=== PATIENT | female | born 1975 | race Hispanic/Latino ===

== ENCOUNTER 2017-10-20 14:09 | Inpatient (IN) | payer MEDICARE ==
[~2017-10-20] VITALS: Ht 167.6 cm; Wt 130.1 kg
[~2017-10-20 14:09] MED LIST: ACET500C54 PO; AMLO5TAB2 PO; CEPH500B PO; CILO100T PO; INSU100C6 SQ; INSU100I24 SQ; ISOS30TA6 PO; METO-409 PO; METO10TA3 PO; METR500T PO; ONDA8TAB11 PO; PREG150C PO; SODI15OR11 PO; TYL3B PO; ZINC TP; ZOLP10TA6 PO; [UNRECOGNIZED DRUG - OTHER] TP
[2017-10-20 15:07] LABS: BASOPHILS % (AUTO) 0.5 % (0.0-5.0); EOSINOPHILS % (AUTO) 11.8 % (0.0-8.0); HEMATOCRIT 24.7 % (36-48); LYMPHOCYTES % (AUTO) 29.1 % (21.0-51.0); MEAN CORPUSCULAR HEMOGLOBIN 31.3 pg (27.0-33.0); MEAN CORPUSCULAR HGB CONC 32.7 g/dL (32.0-36.0); MEAN CORPUSCULAR VOLUME 95.8 fL (79-99); MONOCYTES % (AUTO) 8.3 % (3.0-13.0); NEUTROPHILS % (AUTO) 50.3 % (40.0-77.0); PLATELET COUNT (AUTO) 149 K/uL (130-400); RED BLOOD CELL COUNT(AUTO) 2.58 MIL/uL (4.00-5.50); RED CELL DISTRIBUTION WIDTH 14.2 % (11.0-15.5); WHITE BLOOD COUNT (AUTO) 9.2 K/uL (4.8-10.8)
[2017-10-20 15:42] LABS: ALBUMIN 1.3 g/dL (3.5-5.0); BILIRUBIN,TOTAL 0.1 mg/dL (0.2-1.0); CREATINE KINASE MB 3.3 ng/mL (0.5-3.6); CREATININE 2.4 mg/dL (0.5-1.5); TOTAL PROTEIN, SERUM 6.5 g/dL (6.0-8.3)
[2017-10-20 15:48] LABS: POTASSIUM 6.2 mmol/L (3.5-5.1)
[2017-10-20] MEDS ORDERED: SODIUM BICARB 50MEQ 50ML VIAL ONE (16:32)
[2017-10-20] MEDS ORDERED: SODIUM POLYSTYRENE SULFONATE 15 GM/60 ML ML ONE ×2 (16:32→20:28)
[2017-10-20] MEDS ORDERED: CALCIUM GLUCONATE 1 GM/10 ML VIAL IV ONE (16:32)
[2017-10-20] MEDS ORDERED: DEXTROSE 50%-WATER 50 ML DISP.SYRIN IV ONE (16:34)
[2017-10-20] MEDS ORDERED: INSULIN HUMULIN R 100 UNIT/ML 3ML ONE (16:35)
[2017-10-20] MEDS ORDERED: SODIUM CHLORIDE 0.9% 1000ML 1,000 ML IV SCH (21:00)
[2017-10-20] MEDS ORDERED: ONDANSETRON HCL 4 MG/2 ML VIAL IVP PRN (21:15)
[2017-10-20] MEDS ORDERED: LACTULOSE 20 GM/30 ML UDCUP PO PRN (21:15)
[2017-10-20] MEDS ORDERED: CLONIDINE HCL 0.1 MG TABLET PO PRN (21:15)
[2017-10-20] MEDS ORDERED: GUAIFENESIN-DM 200/20 MG 10 ML PO PRN (21:15)
[2017-10-20] MEDS ORDERED: NITROGLYCERIN 0.4 MG SL TAB SL PRN (21:15)
[2017-10-20] MEDS ORDERED: DIPHENHYDRAMINE HCL 25 MG CAPSULE PO PRN (21:15)
[2017-10-20] MEDS ORDERED: GLUCAGON 1MG KIT 1 MG ML IM PRN (21:15)
[2017-10-20] MEDS ORDERED: ZOLPIDEM TARTRATE 5 MG TAB PO PRN (21:15)
[2017-10-20] MEDS ORDERED: DEXTROSE 50%-WATER 50 ML DISP.SYRIN IV PRN (21:15)
[2017-10-20] MEDS ORDERED: GUAIFENESIN SUGAR-FREE 100 MG/5 ML UDCUP PO PRN (21:15)
[2017-10-20] MEDS ORDERED: MAG HYDROX/AL HYDROX/SIMETH ES 30 ML SUSP UDCUP PO PRN (21:15)
[2017-10-20] MEDS ORDERED: ACETAMINOPHEN 325 MG TAB PO PRN ×2 (21:15)
[2017-10-20] MEDS ORDERED: DiphenhydrAMINE HCL 50 MG/ML VIAL IVP PRN (21:15)
[2017-10-21 00:16] VITALS: BP 156/93
[2017-10-21] MEDS ORDERED: INSU200I4 SQ (01:22)
[2017-10-21] MEDS ORDERED: BUPR75TA8 PO (01:22)
[2017-10-21 04:10] VITALS: BP 173/85
[2017-10-21 04:57] LABS: HEMATOCRIT 23.4 % (36-48); MEAN CORPUSCULAR HEMOGLOBIN 33.7 pg (27.0-33.0); MEAN CORPUSCULAR HGB CONC 35.6 g/dL (32.0-36.0); MEAN CORPUSCULAR VOLUME 94.7 fL (79-99); PLATELET COUNT (AUTO) 132 K/uL (130-400); RED BLOOD CELL COUNT(AUTO) 2.47 MIL/uL (4.00-5.50); RED CELL DISTRIBUTION WIDTH 14.1 % (11.0-15.5); WHITE BLOOD COUNT (AUTO) 9.1 K/uL (4.8-10.8)
[2017-10-21 05:08] LABS: ALBUMIN 1.3 g/dL (3.5-5.0); BILIRUBIN,TOTAL 0.1 mg/dL (0.2-1.0); CREATININE 2.3 mg/dL (0.5-1.5); POTASSIUM 5.7 mmol/L (3.5-5.1); TOTAL PROTEIN, SERUM 6.3 g/dL (6.0-8.3)
[2017-10-21] MEDS ORDERED: SODIUM POLYSTYRENE SULFONATE 15 GM/60 ML ML ONE (06:36)
[2017-10-21] MEDS ORDERED: INSULIN R PO SSI SQ SCH (07:30)
[2017-10-21] MEDS ORDERED: SODIUM POLYSTYRENE SULFONATE 15 GM/60 ML ML PO SCH (08:00)
[2017-10-21 08:40] VITALS: BP 190/71
== END 2017-10-21 13:40 | disposition home or self-care (01) | DRG 641 ==
LOC: EDH 14:09 → EDHIP 20:10 → 4BH 23:45
PROVIDERS: ADMIT Family Medicine; ATTEND Family Medicine
DX: E87.5 Hyperkalemia (principal); E11.22 Type 2 diabetes mellitus with diabetic chronic kidney disease; K31.84 Gastroparesis; E46 Unspecified protein-calorie malnutrition; E11.43 Type 2 diabetes mellitus with diabetic autonomic (poly)neuropathy; Z68.42 Body mass index [BMI] 45.0-49.9, adult; I69.354 Hemiplegia and hemiparesis following cerebral infarction affecting left non-dominant side; R07.89 Other chest pain; E78.5 Hyperlipidemia, unspecified; I12.9 Hypertensive chronic kidney disease with stage 1 through stage 4 chronic kidney disease, or unspecified chronic kidney disease; N18.9 Chronic kidney disease, unspecified; Z89.511 Acquired absence of right leg below knee; Z89.612 Acquired absence of left leg above knee; Z88.6 Allergy status to analgesic agent; Z88.2 Allergy status to sulfonamides; Z98.891 History of uterine scar from previous surgery
CPT/HCPCS: 36415; 71045; 80053; 82550; 82553; 82948; 84132; 84484; 85025; 85027; 93005; J0610; J1815; J3490; J7030; J7070

== ENCOUNTER 2017-11-30 21:53 | Emergency (ER) | payer MEDICARE ==
[~2017-11-30 21:53] MED LIST changes: -AMLO5TAB2 PO; +BUPR75TA8 PO; -CEPH500B PO; -INSU100I24 SQ; +INSU200I4 SQ; -ISOS30TA6 PO; -METR500T PO; -SODI15OR11 PO
[2017-11-30] MEDS ORDERED: HYDRALAZINE HCL 20 MG/ML VIAL ONE (22:20)
[2017-11-30] MEDS ORDERED: DEXTROSE 50%-WATER 50 ML DISP.SYRIN IV ONE (22:20)
[2017-11-30] MEDS ORDERED: HYDROXYZINE HCL 25 MG TABLET ONE (22:34)
[2017-11-30 22:35] LABS: BASOPHILS % (AUTO) 0.4 % (0.0-5.0); EOSINOPHILS % (AUTO) 5.2 % (0.0-8.0); HEMATOCRIT 25.8 % (36-48); LYMPHOCYTES % (AUTO) 19.7 % (21.0-51.0); MEAN CORPUSCULAR HEMOGLOBIN 32.3 pg (27.0-33.0); MEAN CORPUSCULAR HGB CONC 34.6 g/dL (32.0-36.0); MEAN CORPUSCULAR VOLUME 93.3 fL (79-99); MONOCYTES % (AUTO) 5.4 % (3.0-13.0); NEUTROPHILS % (AUTO) 69.3 % (40.0-77.0); PLATELET COUNT (AUTO) 153 K/uL (130-400); RED BLOOD CELL COUNT(AUTO) 2.76 MIL/uL (4.00-5.50); RED CELL DISTRIBUTION WIDTH 12.6 % (11.0-15.5); WHITE BLOOD COUNT (AUTO) 12.2 K/uL (4.8-10.8)
[2017-11-30 22:45] LABS: CREATININE 2.9 mg/dL (0.5-1.5); INR 0.97 (0.85-1.15); PARTIAL THROMBOPLASTIN TIME 28.7 SEC (26.3-35.5); POTASSIUM 4.9 mmol/L (3.5-5.1); PROTHROMBIN TIME 10.2 SEC (9.6-11.6)
[2017-11-30 22:58] LABS: ALBUMIN 1.3 g/dL (3.5-5.0); BILIRUBIN,TOTAL 0.3 mg/dL (0.2-1.0); CREATINE KINASE MB 3.2 ng/mL (0.5-3.6); TOTAL PROTEIN, SERUM 6.4 g/dL (6.0-8.3)
[2017-12-01] MEDS ORDERED: DEXTROSE 50%-WATER 50 ML DISP.SYRIN IV ONE (00:16)
[2017-12-01] MEDS ORDERED: HALOPERIDOL LACTATE 5 MG/ML VIAL ONE (00:16)
== END 2017-12-01 01:58 | disposition left against medical advice (07) ==
LOC: EDH 21:53
DX: E11.649 Type 2 diabetes mellitus with hypoglycemia without coma (principal); E11.43 Type 2 diabetes mellitus with diabetic autonomic (poly)neuropathy; K31.84 Gastroparesis; E78.5 Hyperlipidemia, unspecified; Z88.2 Allergy status to sulfonamides; Z88.6 Allergy status to analgesic agent; Z86.73 Personal history of transient ischemic attack (TIA), and cerebral infarction without residual deficits
CPT/HCPCS: 36415; 80053; 82550; 82553; 82948 ×3; 83690; 84484; 85025; 85610; 85730; 87804 ×2; 93005; 96372; 96374; 96375; 96376; 99285; J0360; J1630; J7070 ×2

== ENCOUNTER 2017-12-18 23:30 | Observation (INO) | payer MEDICARE ==
[~2017-12-18] VITALS: Ht 152.4 cm; Wt 132.2 kg
[2017-12-18 23:58] LABS: BASOPHILS % (AUTO) 0.5 % (0.0-5.0); EOSINOPHILS % (AUTO) 3.7 % (0.0-8.0); HEMATOCRIT 24.4 % (36-48); LYMPHOCYTES % (AUTO) 25.8 % (21.0-51.0); MEAN CORPUSCULAR HEMOGLOBIN 33.2 pg (27.0-33.0); MEAN CORPUSCULAR HGB CONC 33.5 g/dL (32.0-36.0); MEAN CORPUSCULAR VOLUME 98.9 fL (79-99); MONOCYTES % (AUTO) 4.8 % (3.0-13.0); NEUTROPHILS % (AUTO) 65.2 % (40.0-77.0); PLATELET COUNT (AUTO) 145 K/uL (130-400); RED BLOOD CELL COUNT(AUTO) 2.46 MIL/uL (4.00-5.50); RED CELL DISTRIBUTION WIDTH 13.4 % (11.0-15.5); WHITE BLOOD COUNT (AUTO) 10.3 K/uL (4.8-10.8)
[2017-12-19 00:07] LABS: INR 0.98 (0.85-1.15); PARTIAL THROMBOPLASTIN TIME 26.8 SEC (26.3-35.5); PROTHROMBIN TIME 10.3 SEC (9.6-11.6)
[2017-12-19 00:44] LABS: APPEARANCE,URINE CLOUDY (CLEAR); BILIRUBIN,URINE N (NEGATIVE); COLOR,URINE YELLOW (YELLOW); GLUCOSE, URINE (UA) 100 mg/dL (NEGATIVE); KETONES,URINE NEGATIVE (NEGATIVE); OCCULT BLOOD,URINE MODERATE (NEGATIVE); PROTEIN,URINE >=300 (NEGATIVE)
[2017-12-19 00:45] LABS: LEUKOCYTE ESTERASE ,URINE TRACE (NEGATIVE); NITRATE,URINE POSITIVE (NEGATIVE); UROBILINOGEN,URINE 0.2 mg/dL (0.2-1.0)
[2017-12-19 00:47] LABS: CREATINE KINASE MB 4.2 ng/mL (0.5-3.6)
[2017-12-19 00:53] LABS: AMPHET/METH SCREEN,URINE NEGATIVE (NEGATIVE); BARBITURATE SCREEN, URINE NEGATIVE (NEGATIVE); BENZODIAZEPINES SCREEN,URINE NEGATIVE (NEGATIVE); CANNABINOID SCREEN,URINE NEGATIVE (NEGATIVE); COCAINE SCREEN,URINE NEGATIVE (NEGATIVE); OPIATE SCREEN,URINE NEGATIVE (NEGATIVE); PHENCYCLIDINE SCREEN,URINE NEGATIVE (NEGATIVE)
[2017-12-19 00:58] LABS: CREATININE 3.3 mg/dL (0.5-1.5); POTASSIUM 5.8 mmol/L (3.5-5.1)
[2017-12-19 01:03] LABS: ALBUMIN 1.4 g/dL (3.5-5.0); BILIRUBIN,TOTAL 0.2 mg/dL (0.2-1.0); TOTAL PROTEIN, SERUM 6.2 g/dL (6.0-8.3)
[2017-12-19 01:08] LABS: WBC,URINE 26-50 /HPF (0-1)
[2017-12-19 01:09] LABS: BACTERIA,URINE Many /HPF (None Seen); MUCUS,URINE Few LPF (None Seen); SQUAMOUS EPITHELIAL CELL,UR Moderate /HPF (0-2)
[2017-12-19] MEDS ORDERED: ONDANSETRON HCL MDV 20ML 2 MG/ML VIAL ONE (02:12)
[2017-12-19] MEDS ORDERED: CEFTRIAXONE SODIUM 1 GM ONE (02:12)
[2017-12-19] MEDS ORDERED: SODIUM POLYSTYRENE SULFONATE 15 GM/60 ML ML ONE (02:12)
[2017-12-19] MEDS ORDERED: INSU100I24 SQ (04:10)
[2017-12-19 04:24] VITALS: BP 166/86
[2017-12-19] MEDS ORDERED: SODIUM CHLORIDE 0.9% 1000ML 1,000 ML IV SCH ×2 (04:45)
[2017-12-19 07:42] VITALS: BP 123/50
[2017-12-19] MEDS ORDERED: INSULIN DEGLUDEC 60 UNIT SQ SCH (09:00)
[2017-12-19] MEDS ORDERED: PREGABALIN 75 MG CAPSULE PO SCH (09:00)
[2017-12-19] MEDS ORDERED: BUPROPION HCL 75 MG PO SCH (09:00)
[2017-12-19] MEDS ORDERED: CILOSTAZOL 100 MG TAB PO SCH (09:00)
[2017-12-19] MEDS ORDERED: ONDANSETRON ODT 4 MG TAB PO SCH (09:00)
[2017-12-19] MEDS ORDERED: METOPROLOL TARTRATE 50 MG TAB PO SCH (09:00)
[2017-12-19] MEDS ORDERED: ASPIRIN 325 MG TABLET PO SCH ×2 (09:00)
[2017-12-19] MEDS ORDERED: METOCLOPRAMIDE 10 MG TABLET PO SCH (16:30)
[2017-12-19] MEDS ORDERED: ZOLPIDEM TARTRATE 5 MG TAB PO SCH (21:00)
== END 2017-12-19 13:00 | disposition home or self-care (01) ==
LOC: EDH 23:30 → EDHIP 12-19 02:59 → 2AH 12-19 04:00
PROVIDERS: ADMIT Family Medicine; ATTEND Family Medicine
DX: G45.9 Transient cerebral ischemic attack, unspecified (principal); I12.9 Hypertensive chronic kidney disease with stage 1 through stage 4 chronic kidney disease, or unspecified chronic kidney disease; N18.9 Chronic kidney disease, unspecified; E78.5 Hyperlipidemia, unspecified; E87.5 Hyperkalemia; E11.22 Type 2 diabetes mellitus with diabetic chronic kidney disease; E11.51 Type 2 diabetes mellitus with diabetic peripheral angiopathy without gangrene; Z87.441 Personal history of nephrotic syndrome; Z79.4 Long term (current) use of insulin; R41.0 Disorientation, unspecified; N30.00 Acute cystitis without hematuria
CPT/HCPCS: 36415; 70450; 71045; 80053; 80305; 81001; 82550; 82553; 82948 ×2; 83874; 84484; 85025; 85610; 85730; 87088; 87186; 93005; 93880; 99285; G0378 ×10; J0696

== ENCOUNTER 2018-02-08 20:48 | Emergency (ER) | payer MEDICARE ==
[~2018-02-08 20:48] MED LIST changes: -ACET500C54 PO; +INSU100I24 SQ; -INSU200I4 SQ; -TYL3B PO; -ZINC TP; -[UNRECOGNIZED DRUG - OTHER] TP
[2018-02-08 22:01] LABS: BASOPHILS % (AUTO) 0.5 % (0.0-5.0); EOSINOPHILS % (AUTO) 7.7 % (0.0-8.0); HEMATOCRIT 25.5 % (36-48); LYMPHOCYTES % (AUTO) 20.1 % (21.0-51.0); MEAN CORPUSCULAR HGB CONC 33.7 g/dL (32.0-36.0); MEAN CORPUSCULAR VOLUME 95.1 fL (79-99); MONOCYTES % (AUTO) 5.8 % (3.0-13.0); NEUTROPHILS % (AUTO) 65.9 % (40.0-77.0); PLATELET COUNT (AUTO) 148 K/uL (130-400); RED BLOOD CELL COUNT(AUTO) 2.68 MIL/uL (4.00-5.50); RED CELL DISTRIBUTION WIDTH 13.1 % (11.0-15.5); WHITE BLOOD COUNT (AUTO) 10.1 K/uL (4.8-10.8)
[2018-02-08 22:11] LABS: CREATININE 4.3 mg/dL (0.5-1.5); POTASSIUM 5.7 mmol/L (3.5-5.1)
[2018-02-08 22:16] LABS: ALBUMIN 1.5 g/dL (3.5-5.0); BILIRUBIN,TOTAL 0.2 mg/dL (0.2-1.0); TOTAL PROTEIN, SERUM 6.4 g/dL (6.0-8.3)
[2018-02-08] MEDS ORDERED: SODIUM POLYSTYRENE SULFONATE 15 GM/60 ML ML ONE (22:21)
== END 2018-02-08 22:37 | disposition home or self-care (01) ==
LOC: EDH 20:48
DX: E87.5 Hyperkalemia (principal); E11.9 Type 2 diabetes mellitus without complications; E78.5 Hyperlipidemia, unspecified; I10 Essential (primary) hypertension; Z88.2 Allergy status to sulfonamides; Z88.6 Allergy status to analgesic agent; Z86.73 Personal history of transient ischemic attack (TIA), and cerebral infarction without residual deficits; Z98.890 Other specified postprocedural states; Z89.511 Acquired absence of right leg below knee; Z89.612 Acquired absence of left leg above knee
CPT/HCPCS: 36415; 80053; 85025

== ENCOUNTER 2018-02-20 07:47 | Inpatient (IN) | payer MEDICARE ==
[~2018-02-20] VITALS: Ht 167.6 cm; Wt 117.1 kg
[2018-02-20 08:31] LABS: BASOPHILS % (AUTO) 0.8 % (0.0-5.0); EOSINOPHILS % (AUTO) 5.6 % (0.0-8.0); HEMATOCRIT 28.8 % (36-48); MEAN CORPUSCULAR HEMOGLOBIN 31.9 pg (27.0-33.0); MEAN CORPUSCULAR HGB CONC 33.8 g/dL (32.0-36.0); MEAN CORPUSCULAR VOLUME 94.4 fL (79-99); MONOCYTES % (AUTO) 5.1 % (3.0-13.0); NEUTROPHILS % (AUTO) 60.5 % (40.0-77.0); PLATELET COUNT (AUTO) 163 K/uL (130-400); RED BLOOD CELL COUNT(AUTO) 3.05 MIL/uL (4.00-5.50); RED CELL DISTRIBUTION WIDTH 13.6 % (11.0-15.5)
[2018-02-20 08:52] LABS: CREATININE 4.4 mg/dL (0.5-1.5); POTASSIUM 5.5 mmol/L (3.5-5.1)
[2018-02-20 08:55] LABS: INR 0.94 (0.85-1.15); PARTIAL THROMBOPLASTIN TIME 26.9 SEC (26.3-35.5); PROTHROMBIN TIME 9.9 SEC (9.6-11.6)
[2018-02-20] MEDS ORDERED: LIDOCAINE HCL 2% 20ML ONE (09:32)
[2018-02-20] MEDS ORDERED: COMPOUND IV MISC 1 EACH IVSOLN MISC PRN (10:15)
[2018-02-20] MEDS ORDERED: LISINOPRIL 20 MG TABLET PO SCH (10:15)
[2018-02-20] MEDS ORDERED: EPOETIN ALFA 20,000 UNIT/ML VIAL SQ SCH (10:15)
[2018-02-20 10:45] VITALS: BP 176/87
[2018-02-20] MEDS ORDERED: COMPOUND IV REFRIGERATED 1 EACH IVSOLN MISC PRN (10:45)
[2018-02-20 11:00] VITALS: BP_SYST 185; BP_SYST 187; BP_DIAS 100; BP_DIAS 90
[2018-02-20 11:15] VITALS: BP 192/109
[2018-02-20] MEDS ORDERED: ALBUMIN (HUMAN) 25% 100 ML IV PRN (12:00)
[2018-02-20] MEDS ORDERED: 0.9% SODIUM CHLORIDE 250 ML IV BAG IV PRN (12:00)
[2018-02-20 12:03] VITALS: BP 165/77
[2018-02-20 12:22] LABS: HEMOGLOBIN A1C 5.7 % (4.0-6.0)
[2018-02-20 12:39] LABS: ALANINE AMINOTRANSFERASE 16 U/L (12-78); ALBUMIN 1.6 g/dL (3.5-5.0); ASPARTATE AMINOTRANSFERASE 38 U/L (10-37); BILIRUBIN,DIRECT < 0.1 mg/dL (0.0-0.3); BILIRUBIN,TOTAL 0.3 mg/dL (0.2-1.0); CHOLESTEROL 146 mg/dL (<200); HDL CHOLESTEROL 46 mg/dL (35-85); LDL DIRECT 82 mg/dL (0-99); TOTAL PROTEIN, SERUM 7.3 g/dL (6.0-8.3); TRIGLYCERIDES 210 mg/dL (30-200)
[2018-02-20] MEDS ORDERED: ISOS30TA6 PO (13:15)
[2018-02-20] MEDS ORDERED: FURO20TA4 PO (13:15)
[2018-02-20] MEDS ORDERED: CETI10TA86 PO (13:15)
[2018-02-20] MEDS ORDERED: VENL75TA63 PO (13:15)
[2018-02-20] MEDS ORDERED: METO2.5T2 PO (13:15)
[2018-02-20] MEDS ORDERED: LEVO100 PO (13:15)
[2018-02-20] MEDS ORDERED: DULA0.75 SQ (13:17)
[2018-02-20 13:28] LABS: % IRON SATURATION 38.8 % (22-44)
[2018-02-20] MEDS: HEPARIN SODIUM 5000UNIT/ML 1ML VIAL IJ PRN (13:46)
[2018-02-20] MEDS: IRON SUCROSE COMPLEX 100 MG in SODIUM CHLORIDE 0.9% 50 ML IV SCH (15:39)
[2018-02-20 16:00] VITALS: BP 164/82
[2018-02-20 20:00] VITALS: BP 148/79
[2018-02-20] MEDS: METOPROLOL TARTRATE 50 MG TAB PO SCH (21:38)
[2018-02-20] MEDS: ZOLPIDEM TARTRATE 5 MG TAB PO SCH (21:38)
[2018-02-20] MEDS: METOCLOPRAMIDE 10 MG TABLET PO SCH (21:38)
[2018-02-21] VITALS: BP 128/84
[2018-02-21 04:00] VITALS: BP 150/78
[2018-02-21 05:51] LABS: MEAN CORPUSCULAR HEMOGLOBIN 32.9 pg (27.0-33.0); MEAN CORPUSCULAR HGB CONC 35.2 g/dL (32.0-36.0); MEAN CORPUSCULAR VOLUME 93.4 fL (79-99); PLATELET COUNT (AUTO) 143 K/uL (130-400); RED BLOOD CELL COUNT(AUTO) 2.78 MIL/uL (4.00-5.50); RED CELL DISTRIBUTION WIDTH 13.2 % (11.0-15.5); WHITE BLOOD COUNT (AUTO) 10.3 K/uL (4.8-10.8)
[2018-02-21 06:01] LABS: CREATININE 4.2 mg/dL (0.5-1.5); PHOSPHORUS 5.9 mg/dL (2.5-4.9); POTASSIUM 4.2 mmol/L (3.5-5.1)
[2018-02-21 06:02] LABS: BASOPHILS % (MANUAL) 1 % (0-2); EOSINOPHILS % (MANUAL) 3 % (1-6); LYMPHOCYTES % (MANUAL) 36 % (22-44); MONOCYTES % (MANUAL) 4 % (2-9); SEGMENTED NEUTROPHILS % 56 % (40-70)
[2018-02-21 06:03] LABS: MAN.DIFF COMMENT-IMPRESSION MANUAL DIFFERENTIAL; PLATELET MORPHOLOGY COMMENT ADEQUATE
[2018-02-21 08:00] VITALS: BP 132/75
[2018-02-21 08:21] LABS: HEPATITIS Bs ANTIGEN SCREEN P Negative (Negative)
[2018-02-21] MEDS: INSULIN DEGLUDEC 10 UNIT SQ SCH (09:00)
[2018-02-21] MEDS ORDERED: LISINOPRIL 20 MG TABLET PO SCH (09:00)
[2018-02-21] MEDS ORDERED: GLUCAGON 1MG KIT 1 MG ML IM PRN (09:45)
[2018-02-21] MEDS ORDERED: DEXTROSE 50%-WATER 50 ML DISP.SYRIN IV PRN (09:45)
[2018-02-21 11:00] VITALS: BP 137/72
[2018-02-21] MEDS ORDERED: CEFAZOLIN 3GM /D5W 100ML 100 ML IV SCH (12:15)
[2018-02-21] MEDS: CEFAZOLIN SODIUM 1 GM VIAL IVP SCH (12:30)
[2018-02-21] MEDS: IRON SUCROSE COMPLEX 100 MG in SODIUM CHLORIDE 0.9% 50 ML IV SCH (13:07)
[2018-02-21] MEDS: METOPROLOL TARTRATE 50 MG TAB PO SCH ×2 (13:08→22:12)
[2018-02-21] MEDS: CILOSTAZOL 100 MG TAB PO SCH (13:08)
[2018-02-21] MEDS: METOCLOPRAMIDE 10 MG TABLET PO SCH ×2 (13:08→22:12)
[2018-02-21] MEDS: BUPROPION HCL 150 MG TABLET.SA PO SCH (13:09)
[2018-02-21 16:00] VITALS: BP 149/75
[2018-02-21 20:00] VITALS: BP 143/74
[2018-02-21] MEDS: INSULIN HUMULIN R 100 UNIT/ML 3ML SQ SCH (21:00)
[2018-02-21] MEDS: ZOLPIDEM TARTRATE 5 MG TAB PO SCH (22:12)
[2018-02-22] VITALS (21 sets, daily range): BP systolic 65–167; BP diastolic 54–88
[2018-02-22] MEDS: INSULIN DEGLUDEC 10 UNIT SQ SCH (09:00)
[2018-02-22] MEDS ORDERED: HOME MEDICATION 1 EACH SQ SCH (09:00)
[2018-02-22] MEDS: INSULIN HUMULIN R 100 UNIT/ML 3ML SQ SCH (09:00)
[2018-02-22] MEDS: METOPROLOL TARTRATE 50 MG TAB PO SCH ×2 (09:16→20:16)
[2018-02-22] MEDS ORDERED: PAPAVERINE HCL 30 MG/ML 2ML VIAL ONE (09:26)
[2018-02-22] MEDS ORDERED: NEOMY SULF/POLYMYXIN B SULFATE 1 ML AMPUL IR ONE (09:26)
[2018-02-22] MEDS ORDERED: LIDOCAINE HCL MPF 1% 5ML VIAL ONE (09:35)
[2018-02-22] MEDS ORDERED: LIDOCAINE HCL 2% JELLY 5 ML ONE (09:35)
[2018-02-22] MEDS ORDERED: LIDOCAINE HCL 4% LTA SOL 4 ML VIAL ONE (09:35)
[2018-02-22] MEDS: SODIUM CHLORIDE 0.9% 1000ML 1,000 ML IV PRN (09:35)
[2018-02-22] MEDS ORDERED: ROCURONIUM BROMIDE 10MG/1ML 5ML VL ONE (09:35)
[2018-02-22] MEDS ORDERED: ROPIVACAINE 0.5% 5MG/ML 30ML IJ ONE (09:35)
[2018-02-22] MEDS ORDERED: LIDOCAINE PF 2% 5ML ABBOJECT ONE (09:35)
[2018-02-22] MEDS ORDERED: MIDAZOLAM HCL 1 MG/ML 2ML VIAL ONE ×2 (09:35→10:35)
[2018-02-22] MEDS ORDERED: PROPOFOL 10 MG/ML 20ML VIAL IV ONE (09:35)
[2018-02-22] MEDS ORDERED: FENTANYL CITRATE PF 50 MCG/1 ML 2ML VIAL ONE (09:36)
[2018-02-22] MEDS: CEFAZOLIN SODIUM 1 GM VIAL IVP SCH ×2 (09:55→12:30)
[2018-02-22] MEDS ORDERED: ACETAMINOPHEN-CODEINE 300/30MG TAB PO PRN (11:30)
[2018-02-22] MEDS: BUPROPION HCL 150 MG TABLET.SA PO SCH (15:34)
[2018-02-22] MEDS: CILOSTAZOL 100 MG TAB PO SCH (15:34)
[2018-02-22] MEDS: IRON SUCROSE COMPLEX 100 MG in SODIUM CHLORIDE 0.9% 50 ML IV SCH (15:34)
[2018-02-22] MEDS: METOCLOPRAMIDE 10 MG TABLET PO SCH ×2 (15:34→20:16)
[2018-02-22] MEDS: ZOLPIDEM TARTRATE 5 MG TAB PO SCH (20:16)
[2018-02-23] VITALS: BP 123/52
[2018-02-23] MEDS: SODIUM CHLORIDE 0.9% 1000ML 1,000 ML IV PRN (03:17)
[2018-02-23] MEDS: HEPARIN SODIUM 5000UNIT/ML 1ML VIAL IJ PRN (03:19)
[2018-02-23 04:50] LABS: HEMATOCRIT 24.5 % (36-48); MEAN CORPUSCULAR HEMOGLOBIN 32.4 pg (27.0-33.0); MEAN CORPUSCULAR HGB CONC 34.5 g/dL (32.0-36.0); MEAN CORPUSCULAR VOLUME 93.9 fL (79-99); PLATELET COUNT (AUTO) 143 K/uL (130-400); RED BLOOD CELL COUNT(AUTO) 2.61 MIL/uL (4.00-5.50); RED CELL DISTRIBUTION WIDTH 13.1 % (11.0-15.5); WHITE BLOOD COUNT (AUTO) 12.8 K/uL (4.8-10.8)
[2018-02-23 05:00] LABS: BASOPHILS % (MANUAL) 2 % (0-2); EOSINOPHILS % (MANUAL) 2 % (1-6); LYMPHOCYTES % (MANUAL) 26 % (22-44); MAN.DIFF COMMENT-IMPRESSION MANUAL DIFFERENTIAL; MONOCYTES % (MANUAL) 3 % (2-9); SEGMENTED NEUTROPHILS % 67 % (40-70)
[2018-02-23 05:04] LABS: CREATININE 3.9 mg/dL (0.5-1.5); PHOSPHORUS 4.4 mg/dL (2.5-4.9); POTASSIUM 3.4 mmol/L (3.5-5.1)
[2018-02-23] MEDS: INSULIN HUMULIN R 100 UNIT/ML 3ML SQ SCH (06:35)
[2018-02-23 08:30] VITALS: BP 158/69
[2018-02-23] MEDS: INSULIN DEGLUDEC 10 UNIT SQ SCH (09:00)
[2018-02-23] MEDS ORDERED: LISINOPRIL 20 MG TABLET PO SCH (09:00)
[2018-02-23] MEDS ORDERED: LISI10TA7 PO (09:30)
[2018-02-23] MEDS: IRON SUCROSE COMPLEX 100 MG in SODIUM CHLORIDE 0.9% 50 ML IV SCH (10:41)
[2018-02-23] MEDS: CILOSTAZOL 100 MG TAB PO SCH (10:41)
[2018-02-23] MEDS: BUPROPION HCL 150 MG TABLET.SA PO SCH (10:41)
[2018-02-23] MEDS: METOCLOPRAMIDE 10 MG TABLET PO SCH (10:41)
[2018-02-23] MEDS: METOPROLOL TARTRATE 50 MG TAB PO SCH (10:42)
[2018-02-23] MEDS: CEFAZOLIN SODIUM 1 GM VIAL IVP SCH (10:42)
[2018-02-23 12:00] VITALS: BP 178/83
[2018-02-23 16:00] VITALS: BP 126/55
== END 2018-02-23 18:20 | disposition home or self-care (01) | DRG 628 ==
LOC: EDH 07:47 → OBSVTOIN 08:05 → EDHIP 08:05 → 4CH 09:49
PROVIDERS: ADMIT Internal Medicine Nephrology; ATTEND Internal Medicine Nephrology
PROC: 5A1D70Z Performance of Urinary Filtration, Intermittent, Less than 6 Hours Per Day (ICD-10-PCS; principal; 2018-02-20)
PROC: 0JH63XZ Insertion of Tunneled Vascular Access Device into Chest Subcutaneous Tissue and Fascia, Percutaneous Approach (ICD-10-PCS; 2018-02-20)
PROC: 02H633Z Insertion of Infusion Device into Right Atrium, Percutaneous Approach (ICD-10-PCS; 2018-02-20)
PROC: B244ZZZ Ultrasonography of Right Heart (ICD-10-PCS; 2018-02-20)
PROC: 5A1D70Z Performance of Urinary Filtration, Intermittent, Less than 6 Hours Per Day (ICD-10-PCS; 2018-02-21)
PROC: 03170ZD Bypass Right Brachial Artery to Upper Arm Vein, Open Approach (ICD-10-PCS; 2018-02-22 09:50)
PROC: 5A1D70Z Performance of Urinary Filtration, Intermittent, Less than 6 Hours Per Day (ICD-10-PCS; 2018-02-23)
DX: E87.70 Fluid overload, unspecified (principal); N18.6 End stage renal disease; I12.0 Hypertensive chronic kidney disease with stage 5 chronic kidney disease or end stage renal disease; E11.22 Type 2 diabetes mellitus with diabetic chronic kidney disease; E11.319 Type 2 diabetes mellitus with unspecified diabetic retinopathy without macular edema; E11.65 Type 2 diabetes mellitus with hyperglycemia; E78.5 Hyperlipidemia, unspecified; D64.9 Anemia, unspecified; E11.43 Type 2 diabetes mellitus with diabetic autonomic (poly)neuropathy; E11.51 Type 2 diabetes mellitus with diabetic peripheral angiopathy without gangrene; E78.00 Pure hypercholesterolemia, unspecified; E87.5 Hyperkalemia; I25.10 Atherosclerotic heart disease of native coronary artery without angina pectoris; J44.9 Chronic obstructive pulmonary disease, unspecified; K31.84 Gastroparesis; K59.09 Other constipation; Z82.49 Family history of ischemic heart disease and other diseases of the circulatory system; Z83.3 Family history of diabetes mellitus; Z86.73 Personal history of transient ischemic attack (TIA), and cerebral infarction without residual deficits; Z87.441 Personal history of nephrotic syndrome; Z89.511 Acquired absence of right leg below knee; Z89.612 Acquired absence of left leg above knee; Z99.2 Dependence on renal dialysis; Z98.891 History of uterine scar from previous surgery; Z88.2 Allergy status to sulfonamides; Z88.8 Allergy status to other drugs, medicaments and biological substances
CPT/HCPCS: 36415; 36558; 77001; 80048; 80061; 80076; 82728; 82948; 83036; 83540; 83550; 84100; 85025; 85610; 85730; 86701; 86704; 86706; 87340; 87390; 87520; 90935; 93005; 93971; A4218; C1750; J0690; J0885; J1644; J1756; J2001; J2250; J2440; J2704; J2795; J3010; J3490; J7030

== ENCOUNTER 2018-06-13 22:48 | Emergency (ER) | payer MEDICARE ==
[~2018-06-13 22:48] MED LIST changes: +CETI10TA86 PO; +DULA0.75 SQ; +ISOS30TA6 PO; +LEVO100 PO; +LISI10TA7 PO; +VENL75TA63 PO
[2018-06-13 23:59] LABS: BASOPHILS % (AUTO) 0.7 % (0.0-5.0); EOSINOPHILS % (AUTO) 1.5 % (0.0-8.0); HEMATOCRIT 42.4 % (36-48); LYMPHOCYTES % (AUTO) 17.2 % (21.0-51.0); MEAN CORPUSCULAR HEMOGLOBIN 31.5 pg (27.0-33.0); MEAN CORPUSCULAR HGB CONC 33.3 g/dL (32.0-36.0); MEAN CORPUSCULAR VOLUME 94.7 fL (79-99); MONOCYTES % (AUTO) 4.3 % (3.0-13.0); NEUTROPHILS % (AUTO) 76.3 % (40.0-77.0); PLATELET COUNT (AUTO) 176 K/uL (130-400); RED BLOOD CELL COUNT(AUTO) 4.48 MIL/uL (4.00-5.50); RED CELL DISTRIBUTION WIDTH 14.2 % (11.0-15.5); WHITE BLOOD COUNT (AUTO) 11.7 K/uL (4.8-10.8)
[2018-06-14] MEDS ORDERED: PROMETHAZINE HCL 25 MG/ML 1ML AMPULE IM ONE (00:01)
[2018-06-14] MEDS ORDERED: HALOPERIDOL LACTATE 5 MG/ML VIAL ONE (00:01)
[2018-06-14 00:07] LABS: POTASSIUM 3.7 mmol/L (3.5-5.1)
[2018-06-14 00:12] LABS: ALBUMIN 2.4 g/dL (3.5-5.0); BILIRUBIN,TOTAL 0.3 mg/dL (0.2-1.0); TOTAL PROTEIN, SERUM 8.2 g/dL (6.0-8.3)
== END 2018-06-14 01:59 | disposition home or self-care (01) ==
LOC: EDH 22:48
DX: K31.84 Gastroparesis (principal); E11.9 Type 2 diabetes mellitus without complications; E78.5 Hyperlipidemia, unspecified; I10 Essential (primary) hypertension; Z88.2 Allergy status to sulfonamides; Z88.0 Allergy status to penicillin; Z88.6 Allergy status to analgesic agent
CPT/HCPCS: 36415; 80053; 83690; 85025; 93005; 96374; 96375; 99285; J1630; J2550

== ENCOUNTER 2018-07-29 15:36 | Emergency (ER) | payer MEDICARE ==
[2018-07-29 17:18] LABS: CARBON DIOXIDE 29 mmol/L (21-32); CHLORIDE 101 mmol/L (101-111); CREATININE 2.9 mg/dL (0.5-1.5); GLOMERULAR FILTR. RATE CALC 19 mL/min (>60); GLUCOSE,RANDOM 105 mg/dL (70-105); POTASSIUM 3.5 mmol/L (3.5-5.1); SODIUM SERUM 139 mmol/L (136-145); UREA NITROGEN, BLOOD 18 mg/dL (7-18)
[2018-07-29 17:32] LABS: ALANINE AMINOTRANSFERASE 18 U/L (12-78); ALBUMIN 2.3 g/dL (3.5-5.0); AMYLASE 17 U/L (25-115); ASPARTATE AMINOTRANSFERASE 16 U/L (10-37); BILIRUBIN,TOTAL 0.5 mg/dL (0.2-1.0); CREATINE KINASE, TOTAL 45 U/L (21-232); TOTAL PROTEIN, SERUM 7.7 g/dL (6.0-8.3)
[2018-07-29 17:38] LABS: LIPASE < 50 U/L (114-286)
[2018-07-29 17:39] LABS: BASOPHILS % (AUTO) 0.3 % (0.0-5.0); EOSINOPHILS % (AUTO) 3.1 % (0.0-8.0); HEMATOCRIT 37.1 % (36-48); MEAN CORPUSCULAR HEMOGLOBIN 31.6 pg (27.0-33.0); MEAN CORPUSCULAR HGB CONC 33.1 g/dL (32.0-36.0); MEAN CORPUSCULAR VOLUME 95.6 fL (79-99); MONOCYTES % (AUTO) 5.7 % (3.0-13.0); NEUTROPHILS % (AUTO) 63.9 % (40.0-77.0); NUCLEATED RED BLOOD CELLS 0.1 % (0.0-0.19); PLATELET COUNT (AUTO) 115 K/uL (130-400); RED BLOOD CELL COUNT(AUTO) 3.89 MIL/uL (4.00-5.50); RED CELL DISTRIBUTION WIDTH 14.9 % (11.0-15.5)
[2018-07-29] MEDS ORDERED: HALOPERIDOL LACTATE 5 MG/ML VIAL ONE (18:21)
[2018-07-29] MEDS ORDERED: PROMETHAZINE HCL 25 MG/ML 1ML AMPULE IM ONE (18:22)
== END 2018-07-29 18:42 | disposition home or self-care (01) ==
LOC: EDH 15:36
DX: E11.43 Type 2 diabetes mellitus with diabetic autonomic (poly)neuropathy (principal); K31.84 Gastroparesis; I12.0 Hypertensive chronic kidney disease with stage 5 chronic kidney disease or end stage renal disease; E11.22 Type 2 diabetes mellitus with diabetic chronic kidney disease; N18.6 End stage renal disease; F41.9 Anxiety disorder, unspecified; Z99.2 Dependence on renal dialysis; Z88.0 Allergy status to penicillin; Z88.2 Allergy status to sulfonamides; Z88.6 Allergy status to analgesic agent; Z86.73 Personal history of transient ischemic attack (TIA), and cerebral infarction without residual deficits; Z89.511 Acquired absence of right leg below knee; Z89.612 Acquired absence of left leg above knee; Z98.890 Other specified postprocedural states
CPT/HCPCS: 36415; 80053; 82150; 82550; 83690; 84484; 85025; 93005; 96374; 96375; 99284; J1630; J2550

== ENCOUNTER 2019-04-30 13:05 | Observation (INO) | payer MEDICARE ==
[~2019-04-30] VITALS: Ht 170.2 cm; Wt 132.5 kg
[~2019-04-30 13:05] MED LIST changes: +ALPR-409 PO; +CALC667C10 PO; +FAMO20TA8 PO; -INSU100I24 SQ; +INSU3INS9 SQ; -LISI10TA7 PO; +LISI40TA4 PO; +TYL3 PO
[2019-04-30] MEDS ORDERED: ALBUTEROL SULFATE 0.083% 2.5 MG/3 ML INH IH PRN (13:30)
[2019-04-30] MEDS ORDERED: METHYLPREDNISOLONE SOD SUCC 125MG/2ML VIAL IVP SCH (13:30)
[2019-04-30] MEDS ORDERED: SODIUM CHLORIDE 0.9% 10 ML VIAL IVP PRN (13:30)
[2019-04-30] MEDS ORDERED: DIPHENHYDRAMINE HCL 25 MG CAPSULE PO PRN (13:30)
[2019-04-30] MEDS ORDERED: ACETAMINOPHEN 325 MG TAB PO PRN ×2 (13:30→17:30)
[2019-04-30] MEDS ORDERED: ZOLPIDEM TARTRATE 5 MG TAB PO PRN (13:30)
[2019-04-30] MEDS ORDERED: ZOSYN 3.375GM+NS 50ML 50 ML IV SCH (14:00)
[2019-04-30 14:26] LABS: BASOPHILS % (AUTO) 0.5 % (0.0-5.0); EOSINOPHILS % (AUTO) 6.4 % (0.0-8.0); HEMATOCRIT 30.5 % (36-48); LYMPHOCYTES % (AUTO) 17.6 % (21.0-51.0); MEAN CORPUSCULAR HGB CONC 32.9 g/dL (32.0-36.0); MEAN CORPUSCULAR VOLUME 94.2 fL (79-99); MONOCYTES % (AUTO) 4.3 % (3.0-13.0); NEUTROPHILS % (AUTO) 71.2 % (40.0-77.0); PLATELET COUNT (AUTO) 96 K/uL (130-400); RED BLOOD CELL COUNT(AUTO) 3.24 MIL/uL (4.00-5.50); RED CELL DISTRIBUTION WIDTH 15.5 % (11.0-15.5)
[2019-04-30 14:43] LABS: ALBUMIN 1.9 g/dL (3.5-5.0); BILIRUBIN,DIRECT 0.1 mg/dL (0.0-0.3); BILIRUBIN,TOTAL 0.3 mg/dL (0.2-1.0)
[2019-04-30 14:53] LABS: POTASSIUM 6.5 mmol/L (3.5-5.1)
[2019-04-30 15:05] VITALS: BP 179/69
[2019-04-30] MEDS ORDERED: PRED20TA3 PO (15:37)
[2019-04-30] MEDS ORDERED: MEDR10TA PO (15:37)
[2019-04-30] MEDS ORDERED: INSU100I24 SQ (15:44)
[2019-04-30] MEDS ORDERED: 0.9% SODIUM CHLORIDE 1000 ML IV BAG IV PRN (17:30)
[2019-04-30] MEDS ORDERED: HEPARIN SODIUM 5000UNIT/ML 1ML VIAL IJ PRN (17:30)
[2019-04-30] MEDS ORDERED: SODIUM CHLORIDE 0.9% 1000ML 1,000 ML IV PRN (17:30)
[2019-04-30] MEDS: INSULIN LISPRO 100 UNIT/ML 3ML SQ SCH ×2 (17:57→20:58)
[2019-04-30] MEDS: IPRATROPIUM/ALBUTEROL SULFATE 3 ML SOLUTION IH SCH (19:36)
[2019-04-30 20:00] VITALS: BP 144/82
[2019-04-30] MEDS ORDERED: PERMETHRIN LOTION 1% 59ML BOTTLE TP SCH (20:00)
[2019-04-30] MEDS ORDERED: PHARMACY COMMUNICATION MISC SCH (20:30)
[2019-05-01] VITALS (19 sets, daily range): BP systolic 137–200; BP diastolic 33–103
[2019-05-01] MEDS: IPRATROPIUM/ALBUTEROL SULFATE 3 ML SOLUTION IH SCH ×5 (00:55→23:32)
[2019-05-01 05:37] LABS: HEMATOCRIT 28.5 % (36-48); MEAN CORPUSCULAR HEMOGLOBIN 31.3 pg (27.0-33.0); MEAN CORPUSCULAR HGB CONC 33.3 g/dL (32.0-36.0); MEAN CORPUSCULAR VOLUME 93.9 fL (79-99); PLATELET COUNT (AUTO) 84 K/uL (130-400); RED BLOOD CELL COUNT(AUTO) 3.03 MIL/uL (4.00-5.50); RED CELL DISTRIBUTION WIDTH 15.4 % (11.0-15.5); WHITE BLOOD COUNT (AUTO) 12.6 K/uL (4.8-10.8)
[2019-05-01] MEDS: INSULIN LISPRO 100 UNIT/ML 3ML SQ SCH ×4 (05:45→22:22)
[2019-05-01 05:48] LABS: ALBUMIN 1.8 g/dL (3.5-5.0); BILIRUBIN,DIRECT 0.1 mg/dL (0.0-0.3); BILIRUBIN,TOTAL 0.4 mg/dL (0.2-1.0); CREATININE 4.8 mg/dL (0.5-1.5); TOTAL PROTEIN, SERUM 6.6 g/dL (6.0-8.3)
[2019-05-01 05:54] LABS: INR 0.96 (0.85-1.15); PARTIAL THROMBOPLASTIN TIME 26.6 SEC (26.3-35.5); PROTHROMBIN TIME 10.1 SEC (9.6-11.6)
[2019-05-01] MEDS: GUAIFENESIN-CODEINE 5 ML SYRUP PO SCH ×3 (08:45→22:21)
[2019-05-01] MEDS ORDERED: ENOXAPARIN SODIUM 40 MG/0.4 ML SYRINGE SQ SCH (09:00)
[2019-05-01] MEDS ORDERED: CEFAZOLIN SODIUM 1 GM VIAL IVP PRN (10:00)
[2019-05-01] MEDS: ZOSYN 3.375GM+NS 50ML 50 ML IV SCH ×2 (10:30→22:21)
[2019-05-01] MEDS ORDERED: BACITRACIN 50,000 UNIT VIAL ONE (10:53)
[2019-05-01] MEDS ORDERED: BACITRACIN 28.4 GM OINT TP ONE (10:53)
[2019-05-01] MEDS ORDERED: PROPOFOL 10 MG/ML 20ML VIAL IV ONE (10:55)
[2019-05-01] MEDS ORDERED: FENTANYL CITRATE PF 50 MCG/1 ML 2ML VIAL ONE ×2 (10:55→14:15)
[2019-05-01] MEDS ORDERED: MIDAZOLAM HCL 1 MG/ML 2ML VIAL ONE (10:55)
[2019-05-01] MEDS ORDERED: LIDOCAINE PF 2% 5ML ABBOJECT ONE (10:56)
[2019-05-01] MEDS ORDERED: SUCCINYLCHOLINE 200MG/10ML SYR ONE (10:56)
[2019-05-01] MEDS ORDERED: PAPAVERINE HCL 30 MG/ML 2ML VIAL ONE (11:17)
[2019-05-01] MEDS ORDERED: ONDANSETRON HCL 4 MG/2 ML VIAL ONE ×2 (11:33→14:45)
[2019-05-01] MEDS ORDERED: ALBUMIN (HUMAN) 25% 100 ML IV ONE (11:41)
[2019-05-01] MEDS ORDERED: ACETAMINOPHEN 325 MG TAB PO PRN (11:45)
--- NOTE | 2019-05-01 12:00 | NUR ---
INSARIKA PT OFF FLOOR IN PROCEDURE, WILL ATTEMPT IA LATER Addendum: 05/01/19 at 1602 by LAVERNE ALVAREZ RN CM Amended: Links added.
[2019-05-01] MEDS ORDERED: HEPARIN SODIUM 1000UNIT/ML 10ML VIAL ONE ×2 (13:28→13:29)
--- NOTE | 2019-05-01 14:40 | NUR ---
LEFT ARM NEW AV GRAFT, STRONG IRIS AND MELISSA Addendum: 05/01/19 at 1504 by MIRLANDE QURESHI RN RN Amended: Links added.
[2019-05-01] MEDS ORDERED: METOCLOPRAMIDE 10 MG/2 ML VIAL ONE (14:45)
[2019-05-01] MEDS ORDERED: LABETALOL 20 MG/4 ML DISP.SYRIN IV ONE (14:51)
--- NOTE | 2019-05-01 15:24 | NUR ---
LEFT ARM AV GRAFT GOOD BRUIT AND THRILL. Addendum: 05/01/19 at 1525 by MIRLANDE QURESHI RN RN Amended: Links added.
[2019-05-01] MEDS ORDERED: ONDANSETRON HCL 4 MG/2 ML VIAL IVP PRN (15:45)
[2019-05-01] MEDS: METHYLPREDNISOLONE SOD SUCC 125MG/2ML VIAL IVP SCH ×2 (15:52→22:21)
[2019-05-01] MEDS ORDERED: ACETAMINOPHEN-CODEINE 300/30MG TAB PO PRN ×2 (16:00)
--- NOTE | 2019-05-01 16:00 | NUR ---
NOTIFIED DIALYSIS NURSE LILIBETH ON PATIENT BACK FROM SURGERY AND READY FOR TREAMENT .PER LILIBETH WILL LET OTHER NURSE TJ KNOW ON IT . PATIENT CONT WITH POST OP .NO SIGNS OF BLEEDING SWELLING TO SURGICAL SITE. POSITIVE BRUIT AND THRILL TO AREA . DENIES ANY NUMBNESS,EXTREMITY WARM ,CAPILLARY REFILL LESS THAN 3 SEC
[2019-05-02] VITALS: BP 163/79
[2019-05-02] MEDS: GUAIFENESIN-CODEINE 5 ML SYRUP PO SCH ×3 (02:07→14:45)
[2019-05-02 04:00] VITALS: BP 164/76
[2019-05-02 06:08] LABS: BASOPHILS % (AUTO) 0.3 % (0.0-5.0); HEMATOCRIT 28.9 % (36-48); LYMPHOCYTES % (AUTO) 8.3 % (21.0-51.0); MEAN CORPUSCULAR HEMOGLOBIN 31.6 pg (27.0-33.0); MEAN CORPUSCULAR HGB CONC 33.6 g/dL (32.0-36.0); MEAN CORPUSCULAR VOLUME 94.2 fL (79-99); MONOCYTES % (AUTO) 2.2 % (3.0-13.0); NEUTROPHILS % (AUTO) 89.2 % (40.0-77.0); PLATELET COUNT (AUTO) 79 K/uL (130-400); RED BLOOD CELL COUNT(AUTO) 3.07 MIL/uL (4.00-5.50); RED CELL DISTRIBUTION WIDTH 15.5 % (11.0-15.5); WHITE BLOOD COUNT (AUTO) 9.6 K/uL (4.8-10.8)
[2019-05-02 06:19] LABS: CREATININE 3.6 mg/dL (0.5-1.5); POTASSIUM 5.8 mmol/L (3.5-5.1)
[2019-05-02] MEDS: INSULIN LISPRO 100 UNIT/ML 3ML SQ SCH ×3 (06:37→16:41)
[2019-05-02] MEDS: IPRATROPIUM/ALBUTEROL SULFATE 3 ML SOLUTION IH SCH ×3 (06:44→18:50)
[2019-05-02 08:00] VITALS: BP 163/42
[2019-05-02 08:25] LABS: HEPATITIS Bs ANTIGEN SCREEN P Negative (Negative)
[2019-05-02] MEDS: METHYLPREDNISOLONE SOD SUCC 125MG/2ML VIAL IVP SCH (08:41)
[2019-05-02] MEDS: ZOSYN 3.375GM+NS 50ML 50 ML IV SCH (08:41)
[2019-05-02] MEDS ORDERED: SODIUM POLYSTYRENE SULFONATE 15 GM/60 ML ML PO SCH (09:45)
--- NOTE | 2019-05-02 09:59 | NUR ---
No Bruit or Thrill on Left AV Graft No bruit or thrill heard of felt on pt left AV graft, Dr. Hammonds notified and aware on [phone], no new orders.
[2019-05-02 12:00] VITALS: BP 161/89
--- NOTE | 2019-05-02 14:47 | NUR ---
DR. PEREZ PAGED THE SECOND TIME Dr. Perez paged the second time for follow up with plan going forward with non functional left AV graft, still no bruit or thrill noted on pt left AV graft, no numbness or tingling sensation reported by pt, capillary refill brisk and less than 3 seconds, still no new orders, pt also request to see MD before any procedure. Nursing will continue to follow up. Addendum: 05/02/19 at 1455 by MINGO NAVARRETE RN RN DR. HAWLEY PAGED THE SECOND TIME Dr. Hawley paged the second time for follow up with plan going forward with non functional left AV graft, still no bruit or thrill noted on pt left AV graft, no numbness or tingling sensation reported by pt, capillary refill brisk and less than 3 seconds, still no new orders, pt also request to see MD before any procedure. Nursing will continue to follow up.
[2019-05-02 16:00] VITALS: BP 165/84
== END 2019-05-02 18:30 | disposition home or self-care (01) ==
LOC: EDH 13:05 → EDHIP 13:06 → 3CH 14:46
PROVIDERS: ADMIT Internal Medicine; ATTEND Internal Medicine
DX: I12.0 Hypertensive chronic kidney disease with stage 5 chronic kidney disease or end stage renal disease (principal); N18.6 End stage renal disease; E11.22 Type 2 diabetes mellitus with diabetic chronic kidney disease; E11.43 Type 2 diabetes mellitus with diabetic autonomic (poly)neuropathy; E11.51 Type 2 diabetes mellitus with diabetic peripheral angiopathy without gangrene; E78.00 Pure hypercholesterolemia, unspecified; K31.84 Gastroparesis; E78.5 Hyperlipidemia, unspecified; E87.5 Hyperkalemia; I25.10 Atherosclerotic heart disease of native coronary artery without angina pectoris; I70.208 Unspecified atherosclerosis of native arteries of extremities, other extremity; E87.70 Fluid overload, unspecified; J44.1 Chronic obstructive pulmonary disease with (acute) exacerbation; K46.9 Unspecified abdominal hernia without obstruction or gangrene; Z87.441 Personal history of nephrotic syndrome; Z89.511 Acquired absence of right leg below knee; Z89.512 Acquired absence of left leg below knee; Z91.15 Patient's noncompliance with renal dialysis; Z91.19 Patient's noncompliance with other medical treatment and regimen; Z99.2 Dependence on renal dialysis; Z79.899 Other long term (current) drug therapy
CPT/HCPCS: 36415 ×3; 36825; 71045; 74176; 80048 ×3; 80076 ×2; 82947; 82948 ×10; 84703; 85025 ×2; 85027; 85610; 85730; 86704; 86706; 86850; 86900; 86901; 87340; 87520; 93971; 94640 ×8; 94664; 96365; 96366 ×2; 96372 ×3; 96375 ×2; 96376 ×3; 99284; A4649 ×2; A4930 ×2; A6207; C1713 ×2; C1768; G0168; G0378 ×51; J0330; J1644 ×5; J2001; J2250; J2405 ×2; J2543 ×4; J2704; J2765; J2930 ×5; J3010 ×2; J7030; J7040; P9047; 90935; G0257; J0690; J2440

== ENCOUNTER 2019-05-08 15:14 | Observation (INO) | payer MEDICARE ==
[~2019-05-08] VITALS: Ht 170.2 cm; Wt 129.3 kg
[~2019-05-08 15:14] MED LIST changes: -ALPR-409 PO; +INSU100I24 SQ; -INSU3INS9 SQ; -TYL3 PO
[2019-05-08 16:26] LABS: BASOPHILS % (AUTO) 0.5 % (0.0-5.0); EOSINOPHILS % (AUTO) 8.6 % (0.0-8.0); HEMATOCRIT 27.9 % (36-48); LYMPHOCYTES % (AUTO) 21.7 % (21.0-51.0); MEAN CORPUSCULAR HEMOGLOBIN 31.4 pg (27.0-33.0); MEAN CORPUSCULAR HGB CONC 33.2 g/dL (32.0-36.0); MEAN CORPUSCULAR VOLUME 94.6 fL (79-99); MONOCYTES % (AUTO) 5.4 % (3.0-13.0); NEUTROPHILS % (AUTO) 63.8 % (40.0-77.0); PLATELET COUNT (AUTO) 106 K/uL (130-400); RED BLOOD CELL COUNT(AUTO) 2.95 MIL/uL (4.00-5.50); RED CELL DISTRIBUTION WIDTH 15.7 % (11.0-15.5); WHITE BLOOD COUNT (AUTO) 8.2 K/uL (4.8-10.8)
[2019-05-08 16:37] LABS: INR 0.95 (0.85-1.15); PARTIAL THROMBOPLASTIN TIME 26.2 SEC (26.3-35.5)
[2019-05-08 16:38] LABS: CREATININE 5.8 mg/dL (0.5-1.5); POTASSIUM 4.5 mmol/L (3.5-5.1)
[2019-05-08 16:42] LABS: ALBUMIN 2.2 g/dL (3.5-5.0); BILIRUBIN,TOTAL 0.3 mg/dL (0.2-1.0); TOTAL PROTEIN, SERUM 7.1 g/dL (6.0-8.3)
[2019-05-08] MEDS ORDERED: CLINDAMYCIN 600 MG/D5% WATER 50 ML IV ONE (20:01)
[2019-05-08] MEDS ORDERED: MORPHINE SULFATE 4 MG/1ML SYG IVP PRN (20:45)
[2019-05-08] MEDS ORDERED: VANCOMYCIN PROTOCOL PER PHARMACY IV SCH (20:45)
[2019-05-08] MEDS ORDERED: COMPOUND IV REFRIGERATED 1 EACH IVSOLN MISC PRN (21:00)
[2019-05-08] MEDS ORDERED: VANCOMYCIN 2 GM in SODIUM CHLORIDE 0.9% 500ML 500 ML IV ONE (22:00)
[2019-05-08 22:10] VITALS: BP 199/74
--- NOTE | 2019-05-08 22:30 | NUR ---
CALLED, AWARE OF PATIENT. NEW ORDERS RECEIVED AND CARRIED OUT. DIALYSIS IN PROCESS AT THIS TIME. PATIENT TOLERATING WELL. LEFT ARM ELEVATED. CALL LIGHT WITHIN REACH. WILL CONTINUE TO BE OBSERVED. Addendum: 05/09/19 at 0743 by ALLISON CASTRO RN RN Amended: Links added.
[2019-05-09] MEDS ORDERED: HEPARIN SODIUM 5000UNIT/ML 1ML VIAL ONE (00:22)
[2019-05-09] MEDS ORDERED: 0.9% SODIUM CHLORIDE 1000 ML IV BAG IV PRN (01:30)
[2019-05-09] MEDS ORDERED: ACETAMINOPHEN 325 MG TAB PO PRN (01:30)
[2019-05-09] MEDS ORDERED: SODIUM CHLORIDE 0.9% 1000ML 1,000 ML IV PRN (01:30)
[2019-05-09] MEDS ORDERED: HEPARIN SODIUM 5000UNIT/ML 1ML VIAL IJ PRN (01:30)
[2019-05-09] MEDS ORDERED: SODIUM CHLORIDE 0.9% 10 ML VIAL IVP PRN (01:45)
[2019-05-09 03:20] VITALS: BP 168/82
[2019-05-09] MEDS ORDERED: INSU100I24 SQ (03:48)
[2019-05-09] MEDS ORDERED: PRED20TA3 PO (03:48)
[2019-05-09] MEDS: LEVOFLOXACIN 250 MG/D5W 50ML 50 ML IVPB SCH ×2 (05:28)
[2019-05-09] MEDS ORDERED: DEXTROSE 50%-WATER 50 ML DISP.SYRIN IV PRN (05:30)
[2019-05-09] MEDS ORDERED: GLUCAGON 1MG KIT 1 MG ML IM PRN (05:30)
[2019-05-09 05:32] LABS: HEMATOCRIT 27.9 % (36-48); MEAN CORPUSCULAR HEMOGLOBIN 32.2 pg (27.0-33.0); MEAN CORPUSCULAR HGB CONC 33.9 g/dL (32.0-36.0); NUCLEATED RED BLOOD CELLS 0.1 % (0.0-0.19); PLATELET COUNT (AUTO) 86 K/uL (130-400); RED BLOOD CELL COUNT(AUTO) 2.94 MIL/uL (4.00-5.50); RED CELL DISTRIBUTION WIDTH 15.5 % (11.0-15.5); WHITE BLOOD COUNT (AUTO) 9.9 K/uL (4.8-10.8)
[2019-05-09 05:38] LABS: CREATININE 3.5 mg/dL (0.5-1.5); PHOSPHORUS 3.6 mg/dL (2.5-4.9); POTASSIUM 3.8 mmol/L (3.5-5.1)
[2019-05-09] MEDS: METOCLOPRAMIDE 10 MG TABLET PO SCH ×2 (06:26→16:48)
[2019-05-09] MEDS: INSULIN LISPRO 100 UNIT/ML 3ML SQ SCH ×4 (06:26→21:34)
[2019-05-09] MEDS: ONDANSETRON HCL 4 MG/2 ML VIAL IVP PRN ×2 (06:33→09:41)
[2019-05-09] MEDS ORDERED: ONDANSETRON 4 MG TABLET PO PRN ×2 (06:45→07:00)
[2019-05-09 07:00] VITALS: BP 168/73
[2019-05-09] MEDS: BUPROPION HCL 150 MG TABLET.SA PO SCH (08:53)
[2019-05-09] MEDS: PREDNISONE 20 MG TABLET PO SCH (08:53)
[2019-05-09] MEDS: CETIRIZINE HCL 5 MG TABLET PO SCH (08:55)
[2019-05-09] MEDS: PREGABALIN 75 MG CAPSULE PO SCH ×2 (08:55→21:30)
[2019-05-09] MEDS: VENLAFAXINE HCL 75 MG TAB PO SCH (08:55)
[2019-05-09] MEDS: FAMOTIDINE 20MG TAB 20 MG TAB PO SCH (08:56)
[2019-05-09] MEDS: LEVOTHYROXINE 100 MCG TABLET PO SCH (08:56)
[2019-05-09] MEDS: ISOSORBIDE MONO 30MG TAB SR PO SCH (08:56)
[2019-05-09] MEDS: CILOSTAZOL 100 MG TAB PO SCH (08:56)
[2019-05-09] MEDS: FOLIC ACID/VITAMIN B COMP W-C 1 MG CAP/TAB PO SCH (08:56)
[2019-05-09] MEDS: LISINOPRIL 40 MG TABLET PO SCH (08:57)
[2019-05-09] MEDS: CALCIUM ACETATE 667 MG CAPSULE PO SCH ×3 (08:57→16:48)
[2019-05-09] MEDS: ***HM***Metoprolol Succinate 100 MG PO SCH ×2 (08:58→21:00)
[2019-05-09] MEDS: INSULIN GLARGINE 100 UNITS/ML 10 ML VIAL SQ SCH (09:04)
[2019-05-09 11:00] VITALS: BP 137/60
--- NOTE | 2019-05-09 15:19 | NUR ---
DR. PEREZ HERE TO VIEW PT'S GRAFT. PER PRIMARY RN - WILL NOT BE DOING ANY SURGERY TO REVIEW CLOT. Addendum: 05/09/19 at 1527 by LAVERNE ALVAERZ RN CM Amended: Links added.
--- NOTE | 2019-05-09 15:24 | NUR ---
DR. PEREZ CAME TO REVIEW PT ACCESS, PER PRIMARY RN, HE WILL NOT BE DOING ANY PROCEDURE TO REVERSE CLOT OR REVISE ACCESS Addendum: 05/09/19 at 1527 by LAVERNE ALVAREZ RN CM Amended: Links added.
--- NOTE | 2019-05-09 15:30 | NUR ---
RD NOTIFICATION Primary Diagnosis: AV Graft Infection. Hx: DM, HTN, ESRD on Dialysis. Current diet: Renal Dialysis, 75gmCCD. BMI is 43.8; classified as class III obesity. LBM: 9/2. Skin: ulcer on left thigh, 1+ non-pitting edema on left upper extremity. Meds: Humalog, Lantus, Prinivil, Pepcid, Effexor, Zofran, Lyrica, Zyrtec, Synthroid. Labs: BUN 20, CRE 3.5, GFR 15, Alk phosphatase 242, Alb 2.2, HGB 9.5, HCT 27.9. Pt has no appetite and has been eating very poorly as per pt. Pt stated she could not recall even being instructed on Dialysis diet education. RD recommends to continue current diet. Offer Nepro if pt continues to not eat well. Recommend 500mg Vitamin C BID and 220mg Zinc daily for 14 days to aid in wound healing. RD provided pt with handouts regarding Renal Dialysis nutrition therapy. During education, pt had her eyes closed and I could tell she was not feeling up to education during this time. Handouts were left with pt to keep and use as reference. RD will continue to monitor and follow up as needed. Please notify RD if any other nutritional concerns arise. Thank you. Addendum: 05/09/19 at [address] Amended: Links added.
--- NOTE | 2019-05-09 15:32 | NUR ---
DIET EDUCATION RD provided pt with handouts regarding Renal Dialysis nutrition therapy. During education, pt had her eyes closed and could tell she was not feeling up to education during this time. Handouts were left with pt to keep and use as reference. ASHKAN will continue to monitor and follow up as needed. Addendum: 05/09/19 at [address] Amended: Links added.
[2019-05-09 16:00] VITALS: BP 163/82
[2019-05-09 20:00] VITALS: BP 173/67
[2019-05-09] MEDS ORDERED: INSULIN GLARGINE 100 UNITS/ML 10 ML VIAL SQ SCH (21:00)
[2019-05-09] MEDS ORDERED: ZOLPIDEM TARTRATE 5 MG TAB PO SCH (21:00)
[2019-05-10] VITALS: BP 164/57
[2019-05-10 04:00] VITALS: BP 130/69
[2019-05-10 06:21] LABS: CREATININE 4.3 mg/dL (0.5-1.5); POTASSIUM 4.4 mmol/L (3.5-5.1)
[2019-05-10] MEDS: METOCLOPRAMIDE 10 MG TABLET PO SCH ×2 (06:43→16:30)
[2019-05-10] MEDS: INSULIN LISPRO 100 UNIT/ML 3ML SQ SCH ×3 (06:43→16:30)
[2019-05-10 06:49] LABS: BASOPHILS % (AUTO) 0.9 % (0.0-5.0); HEMATOCRIT 28.3 % (36-48); LYMPHOCYTES % (AUTO) 27.2 % (21.0-51.0); MEAN CORPUSCULAR HEMOGLOBIN 31.7 pg (27.0-33.0); MEAN CORPUSCULAR HGB CONC 33.6 g/dL (32.0-36.0); MEAN CORPUSCULAR VOLUME 94.1 fL (79-99); MONOCYTES % (AUTO) 7.5 % (3.0-13.0); NEUTROPHILS % (AUTO) 56.4 % (40.0-77.0); NUCLEATED RED BLOOD CELLS 0.1 % (0.0-0.19); PLATELET COUNT (AUTO) 75 K/uL (130-400); RED BLOOD CELL COUNT(AUTO) 3.01 MIL/uL (4.00-5.50); RED CELL DISTRIBUTION WIDTH 15.7 % (11.0-15.5); WHITE BLOOD COUNT (AUTO) 7.7 K/uL (4.8-10.8)
[2019-05-10 07:00] VITALS: BP 150/63
[2019-05-10] MEDS: CETIRIZINE HCL 5 MG TABLET PO SCH (08:44)
[2019-05-10] MEDS: CILOSTAZOL 100 MG TAB PO SCH (08:44)
[2019-05-10] MEDS: FAMOTIDINE 20MG TAB 20 MG TAB PO SCH (08:44)
[2019-05-10] MEDS: CALCIUM ACETATE 667 MG CAPSULE PO SCH ×3 (08:44→17:00)
[2019-05-10] MEDS: FOLIC ACID/VITAMIN B COMP W-C 1 MG CAP/TAB PO SCH (08:44)
[2019-05-10] MEDS: ISOSORBIDE MONO 30MG TAB SR PO SCH (08:44)
[2019-05-10] MEDS: LEVOTHYROXINE 100 MCG TABLET PO SCH (08:44)
[2019-05-10] MEDS: PREGABALIN 75 MG CAPSULE PO SCH (08:44)
[2019-05-10] MEDS: LISINOPRIL 40 MG TABLET PO SCH (08:45)
[2019-05-10] MEDS: PREDNISONE 20 MG TABLET PO SCH (08:45)
[2019-05-10] MEDS: BUPROPION HCL 150 MG TABLET.SA PO SCH (08:45)
[2019-05-10] MEDS: VENLAFAXINE HCL 75 MG TAB PO SCH (08:45)
[2019-05-10] MEDS: ***HM***Metoprolol Succinate 100 MG PO SCH (08:46)
[2019-05-10] MEDS: INSULIN GLARGINE 100 UNITS/ML 10 ML VIAL SQ SCH (08:51)
[2019-05-10 11:00] VITALS: BP 139/69
[2019-05-10 16:00] VITALS: BP_SYST 139; BP_SYST 161; BP_DIAS 68; BP_DIAS 69
[2019-05-10] MEDS ORDERED: VANCOMYCIN 1GM+NS 250ML 250 ML IV SCH (18:00)
--- NOTE | 2019-05-10 18:59 | NUR ---
DIALYSIS PATIENT RECEIVE DIALYSIS TODAY FROM 1700 HOURS TO 1800 HOURS. PATIENT REPORTED DIARRHEA AND REQUESTED DIALYSIS TO STOP. REMOVED WAS [address] LYONS WAS NOTIFIED AND REQUESTED PATIENT FOLLOW UP WITH DIALYSIS CLINIC TO RECEIVE ANTIBIOTICS.
--- NOTE | 2019-05-10 19:56 | NUR ---
PATIENT DISCHARGE PATIENT DISCHARGED, IV DISCONTINUED, CATHLON INTACT, BLEEDING CONTROLLED, PATIENT TOLERATED WITHOUT INCIDENT.
== END 2019-05-10 20:00 | disposition home or self-care (01) ==
LOC: EDH 15:14 → EDHIP 19:45 → 3CH 21:52
PROVIDERS: ADMIT Internal Medicine; ATTEND Internal Medicine
DX: T82.7XXA Infection and inflammatory reaction due to other cardiac and vascular devices, implants and grafts, initial encounter (principal); E11.22 Type 2 diabetes mellitus with diabetic chronic kidney disease; I12.0 Hypertensive chronic kidney disease with stage 5 chronic kidney disease or end stage renal disease; N18.6 End stage renal disease; E11.51 Type 2 diabetes mellitus with diabetic peripheral angiopathy without gangrene; E11.43 Type 2 diabetes mellitus with diabetic autonomic (poly)neuropathy; E66.9 Obesity, unspecified; E78.5 Hyperlipidemia, unspecified; D64.9 Anemia, unspecified; I25.10 Atherosclerotic heart disease of native coronary artery without angina pectoris; J44.1 Chronic obstructive pulmonary disease with (acute) exacerbation; K31.84 Gastroparesis; M79.632 Pain in left forearm; Z86.73 Personal history of transient ischemic attack (TIA), and cerebral infarction without residual deficits; Z99.2 Dependence on renal dialysis; Z91.19 Patient's noncompliance with other medical treatment and regimen; Z89.519 Acquired absence of unspecified leg below knee; Z87.441 Personal history of nephrotic syndrome; Z87.891 Personal history of nicotine dependence; Z79.4 Long term (current) use of insulin; Z79.899 Other long term (current) drug therapy; Z88.0 Allergy status to penicillin; Z88.1 Allergy status to other antibiotic agents; Z88.2 Allergy status to sulfonamides; Z88.6 Allergy status to analgesic agent; Y83.2 Surgical operation with anastomosis, bypass or graft as the cause of abnormal reaction of the patient, or of later complication, without mention of misadventure at the time of the procedure
CPT/HCPCS: 36415 ×3; 71045; 80048 ×2; 80053; 80202; 82948 ×8; 84100; 85025 ×2; 85027; 85610; 85730; 87040 ×2; 93931; 93971; 96365; 96366; 96367; 96372 ×2; 96375; 96376; 99284; G0378 ×40; J1644; J1956; J2270; J2405 ×2; J3370; J3490; J7040; 90935; G0257

== ENCOUNTER 2019-06-22 05:40 | Observation (INO) | payer MEDICARE ==
[~2019-06-22] VITALS: Ht 170.2 cm; Wt 121.3 kg
[~2019-06-22 05:40] MED LIST changes: +PRED20TA3 PO
[2019-06-22] MEDS ORDERED: ONDANSETRON HCL 4 MG/2 ML VIAL ONE ×2 (06:19→08:58)
[2019-06-22 06:48] LABS: BASOPHILS % (AUTO) 0.9 % (0.0-5.0); EOSINOPHILS % (AUTO) 1.7 % (0.0-8.0); HEMATOCRIT 37.9 % (36-48); LYMPHOCYTES % (AUTO) 24.1 % (21.0-51.0); MEAN CORPUSCULAR HEMOGLOBIN 32.7 pg (27.0-33.0); MEAN CORPUSCULAR HGB CONC 33.1 g/dL (32.0-36.0); MEAN CORPUSCULAR VOLUME 98.7 fL (79-99); MONOCYTES % (AUTO) 6.8 % (3.0-13.0); NEUTROPHILS % (AUTO) 66.5 % (40.0-77.0); NUCLEATED RED BLOOD CELLS 0.1 % (0.0-0.19); PLATELET COUNT (AUTO) 111 K/uL (130-400); RED BLOOD CELL COUNT(AUTO) 3.84 MIL/uL (4.00-5.50); RED CELL DISTRIBUTION WIDTH 14.7 % (11.0-15.5); WHITE BLOOD COUNT (AUTO) 6.9 K/uL (4.8-10.8)
[2019-06-22 06:56] LABS: CREATININE 3.6 mg/dL (0.5-1.5); POTASSIUM 3.8 mmol/L (3.5-5.1)
[2019-06-22 07:02] LABS: ALBUMIN 2.2 g/dL (3.5-5.0); BILIRUBIN,DIRECT 0.2 mg/dL (0.0-0.3); BILIRUBIN,TOTAL 0.5 mg/dL (0.2-1.0)
[2019-06-22] MEDS ORDERED: FAMOTIDINE/PF 20 MG/2 ML VIAL IV ONE (07:21)
[2019-06-22] MEDS ORDERED: METOCLOPRAMIDE 10 MG/2 ML VIAL ONE (10:22)
[2019-06-22 12:50] VITALS: BP 153/87
[2019-06-22] MEDS: METOCLOPRAMIDE 10 MG/2 ML VIAL IVP SCH ×4 (13:00→21:06)
[2019-06-22 16:00] VITALS: BP 130/84
[2019-06-22 20:00] VITALS: BP 195/101
--- NOTE | 2019-06-22 20:44 | NUR ---
PATIENT NOTED WITH A BLOOD PRESSURE OF 195/101. CALLED AND AWARE. NEW ORDERS RECEIVED AND CARRIED OUT. PATIENT AWARE. WILL CONTINUE TO BE OBSERVED. Addendum: 06/23/19 at 0422 by ALLISON CASTRO RN RN Amended: Links added.
[2019-06-22] MEDS ORDERED: CLONIDINE HCL 0.2 MG TABLET PO PRN (20:45)
[2019-06-22] MEDS ORDERED: MEDR10TA PO (21:01)
[2019-06-22] MEDS ORDERED: ACET1TAB12 PO (21:01)
[2019-06-22] MEDS ORDERED: ACETAMINOPHEN-CODEINE 300/30MG TAB PO PRN (21:15)
[2019-06-22] MEDS ORDERED: CLONIDINE HCL 0.1 MG TABLET ONE (21:41)
[2019-06-22] MEDS: ZOLPIDEM TARTRATE 5 MG TAB PO SCH (21:43)
[2019-06-22] MEDS: FAMOTIDINE 20MG TAB 20 MG TAB PO SCH (21:43)
[2019-06-22 23:58] VITALS: BP 165/93
[2019-06-23 04:00] VITALS: BP 159/91
[2019-06-23 05:05] LABS: MEAN CORPUSCULAR HGB CONC 33.1 g/dL (32.0-36.0); MEAN CORPUSCULAR VOLUME 99.6 fL (79-99); NUCLEATED RED BLOOD CELLS 0.1 % (0.0-0.19); PLATELET COUNT (AUTO) 96 K/uL (130-400); RED BLOOD CELL COUNT(AUTO) 3.61 MIL/uL (4.00-5.50); RED CELL DISTRIBUTION WIDTH 14.9 % (11.0-15.5); WHITE BLOOD COUNT (AUTO) 6.7 K/uL (4.8-10.8)
[2019-06-23 05:17] LABS: CREATININE 4.7 mg/dL (0.5-1.5); POTASSIUM 3.9 mmol/L (3.5-5.1)
[2019-06-23] MEDS: ONDANSETRON HCL 4 MG/2 ML VIAL IVP PRN ×2 (05:37→11:50)
--- NOTE | 2019-06-23 06:13 | NUR ---
MD JEREMIAH KERR VISITED WITH PATIENT. POC DISCUSSED. NEW ORDERS RECEIVED AND CARRIED OUT. PATIENT AWARE. CONSENT SIGNED FOR HEMODIALYSIS. NO QUESTIONS OR CONCERNS VOICED AT THIS TIME. SPOUSE AT BEDSIDE. CALL LIGHT WITHIN REACH. WILL CONTINUE TO BE OBSERVED. Addendum: 06/23/19 at 0614 by ALLISON CASTRO RN RN Amended: Links added.
[2019-06-23] MEDS: LEVOTHYROXINE 100 MCG TABLET PO SCH (06:30)
[2019-06-23 08:00] VITALS: BP 158/79
[2019-06-23] MEDS: CALCIUM ACETATE 667 MG CAPSULE PO SCH ×3 (08:00→16:42)
[2019-06-23 08:11] LABS: HEPATITIS Bs ANTIGEN SCREEN P Negative (Negative)
[2019-06-23] MEDS ORDERED: ISOSORBIDE MONO 30MG TAB SR PO SCH (09:00)
[2019-06-23] MEDS ORDERED: LISINOPRIL 40 MG TABLET PO SCH (09:00)
[2019-06-23] MEDS ORDERED: PREDNISONE 20 MG TABLET PO SCH (09:00)
[2019-06-23] MEDS ORDERED: CILOSTAZOL 100 MG TAB PO SCH (09:00)
[2019-06-23] MEDS ORDERED: MEDROXYPROGESTERONE ACET 5 MG TAB PO SCH (09:00)
[2019-06-23] MEDS ORDERED: VENLAFAXINE HCL 75 MG TAB PO SCH (09:00)
[2019-06-23] MEDS ORDERED: BUPROPION HCL 150 MG TABLET.SA PO SCH (09:00)
[2019-06-23] MEDS ORDERED: CETIRIZINE HCL 5 MG TABLET PO SCH (09:00)
[2019-06-23] MEDS: METOPROLOL TARTRATE 50 MG TAB PO SCH ×2 (09:00→20:32)
[2019-06-23] MEDS ORDERED: HEPARIN SODIUM 5000UNIT/ML 1ML VIAL ONE (10:57)
[2019-06-23 11:28] VITALS: BP 120/50
[2019-06-23] MEDS: METOCLOPRAMIDE 10 MG TABLET PO SCH ×2 (12:06→20:32)
[2019-06-23] MEDS: PREGABALIN 75 MG CAPSULE PO SCH ×2 (12:06→20:32)
[2019-06-23 16:00] VITALS: BP 130/70
[2019-06-23 20:00] VITALS: BP 160/82
[2019-06-23] MEDS: FAMOTIDINE 20MG TAB 20 MG TAB PO SCH (20:32)
[2019-06-23] MEDS: ZOLPIDEM TARTRATE 5 MG TAB PO SCH (21:00)
[2019-06-23 23:47] VITALS: BP 138/79
[2019-06-24 04:00] VITALS: BP 157/82
[2019-06-24 06:10] LABS: HEMATOCRIT 37.6 % (36-48); MEAN CORPUSCULAR HEMOGLOBIN 32.8 pg (27.0-33.0); MEAN CORPUSCULAR HGB CONC 33.1 g/dL (32.0-36.0); MEAN CORPUSCULAR VOLUME 99.1 fL (79-99); NUCLEATED RED BLOOD CELLS 0.1 % (0.0-0.19); PLATELET COUNT (AUTO) 93 K/uL (130-400); RED BLOOD CELL COUNT(AUTO) 3.79 MIL/uL (4.00-5.50); RED CELL DISTRIBUTION WIDTH 14.4 % (11.0-15.5); WHITE BLOOD COUNT (AUTO) 7.4 K/uL (4.8-10.8)
[2019-06-24 06:16] LABS: CREATININE 4.6 mg/dL (0.5-1.5); POTASSIUM 4.5 mmol/L (3.5-5.1)
[2019-06-24] MEDS ORDERED: GLUCAGON 1MG KIT 1 MG ML IM PRN (06:45)
[2019-06-24] MEDS ORDERED: DEXTROSE 50%-WATER 50 ML DISP.SYRIN IV PRN (06:45)
[2019-06-24] MEDS: LEVOTHYROXINE 100 MCG TABLET PO SCH (06:50)
[2019-06-24] MEDS ORDERED: INSULIN HUMULIN R 100 UNIT/ML 3ML SQ SCH (07:30)
[2019-06-24 08:00] VITALS: BP 179/88
[2019-06-24 09:05] LABS: BAND NEUTROPHILS % (MANUAL) 1 % (0-2); LYMPHOCYTES % (MANUAL) 5 % (22-44); MONOCYTES % (MANUAL) 4 % (2-9); PLATELET MORPHOLOGY COMMENT DECREASED; SEGMENTED NEUTROPHILS % 90 % (40-70)
--- NOTE | 2019-06-24 11:30 | NUR ---
NOTE DISCHARGE INSTRUCTIONS GIVEN TO PATIENT AND . BOTH VERBALIZED UNDERSTANDING. SHE HAD LOOSE STOOLS YESTERDAY AND SHE HAS HAD ABOUT 3 THIS AM. SHE STATES SHE HAS SAME PROBLEMS AT HOME OFTEN. SHE HAS ASKED HER PRIMARY MD FOR REFERRAL FOR THIS PROBLEM AND WILL DO SO WHEN SHE SEES HER PRIMARY MD TOMORROW. SHE DOES NOT WISH TO STAY AND HAVE DR DIAZ INVESTIGATE THE PROBLEM FURTHER SINCE SHE HAS THIS ISSUE HAPPEN VERY OFTEN. STOOL WAS COLLECTED AND SENT FOR C DIFF BUT STILL PENDING RESULTS. WILL CALL PATIENT WITH RESULTS WHEN I GET THEM. WILL PROCEED WITH DISCHARGE VIA WHEELCHAIR. SHE USES [employer] [facility] FOR TRANSFERRING AT HOME.
--- NOTE | 2019-06-24 17:47 | NUR ---
NOTE NOTIFIED PATIENT OF C DIFF RESUTS BEING NEGATIVE FOR SHE WAS WORRIED ABOUT IT BEFORE SHE WENT HOME EARLIER TODAY. SHE WILL FOLLOW UP WITH DR TIERNEY TOMORROW AT HIS OFFICE
== END 2019-06-24 12:00 | disposition home or self-care (01) ==
LOC: EDH 05:40 → EDHIP 07:40 → 4CH 12:21
PROVIDERS: ADMIT Family Medicine; ATTEND Family Medicine
DX: K52.9 Noninfective gastroenteritis and colitis, unspecified (principal); R11.2 Nausea with vomiting, unspecified; E11.22 Type 2 diabetes mellitus with diabetic chronic kidney disease; I12.0 Hypertensive chronic kidney disease with stage 5 chronic kidney disease or end stage renal disease; N18.6 End stage renal disease; E11.43 Type 2 diabetes mellitus with diabetic autonomic (poly)neuropathy; K31.84 Gastroparesis; E11.51 Type 2 diabetes mellitus with diabetic peripheral angiopathy without gangrene; N17.9 Acute kidney failure, unspecified; D64.9 Anemia, unspecified; E78.5 Hyperlipidemia, unspecified; I69.354 Hemiplegia and hemiparesis following cerebral infarction affecting left non-dominant side; E11.21 Type 2 diabetes mellitus with diabetic nephropathy; Z89.511 Acquired absence of right leg below knee; Z89.612 Acquired absence of left leg above knee; Z79.899 Other long term (current) drug therapy; Z88.0 Allergy status to penicillin; Z88.2 Allergy status to sulfonamides; Z88.1 Allergy status to other antibiotic agents; Z88.6 Allergy status to analgesic agent; Z99.2 Dependence on renal dialysis
CPT/HCPCS: 36415 ×3; 80048 ×3; 80076; 82550; 82948 ×7; 83690; 84484; 85025 ×2; 85027; 86704; 86706; 87340; 87493; 87520; 93005; 96372; 96374; 96375; 96376 ×2; 99284; G0378 ×49; J1644; J2405 ×4; J2765 ×4; J3490; 90935

== ENCOUNTER 2019-07-02 16:31 | Observation (INO) | payer MEDICARE ==
[~2019-07-02] VITALS: Ht 167.6 cm; Wt 122.3 kg
[~2019-07-02 16:31] MED LIST changes: +ACET1TAB12 PO; +MEDR10TA PO
[2019-07-02 17:28] LABS: EOSINOPHILS % (AUTO) 4.3 % (0.0-8.0); HEMATOCRIT 37.5 % (36-48); LYMPHOCYTES % (AUTO) 22.3 % (21.0-51.0); MEAN CORPUSCULAR HEMOGLOBIN 32.5 pg (27.0-33.0); MEAN CORPUSCULAR VOLUME 98.5 fL (79-99); MONOCYTES % (AUTO) 7.4 % (3.0-13.0); NUCLEATED RED BLOOD CELLS 0.1 % (0.0-0.19); PLATELET COUNT (AUTO) 116 K/uL (130-400); RED BLOOD CELL COUNT(AUTO) 3.81 MIL/uL (4.00-5.50); RED CELL DISTRIBUTION WIDTH 13.8 % (11.0-15.5); WHITE BLOOD COUNT (AUTO) 7.1 K/uL (4.8-10.8)
[2019-07-02] MEDS ORDERED: SODIUM CHLORIDE 0.9% 10 ML VIAL IVP PRN (17:30)
[2019-07-02 17:38] LABS: CREATININE 7.1 mg/dL (0.5-1.5); POTASSIUM 5.4 mmol/L (3.5-5.1)
[2019-07-02 17:42] LABS: ALBUMIN 2.2 g/dL (3.5-5.0); BILIRUBIN,DIRECT 0.1 mg/dL (0.0-0.3); BILIRUBIN,TOTAL 0.4 mg/dL (0.2-1.0); TOTAL PROTEIN, SERUM 7.6 g/dL (6.0-8.3)
[2019-07-02 18:10] VITALS: BP 184/90
[2019-07-02 19:53] VITALS: BP 160/80
[2019-07-02] MEDS ORDERED: ONDANSETRON PO PRN (20:00)
[2019-07-02] MEDS ORDERED: ACETAMINOPHEN-CODEINE 300/30MG TAB PO PRN (20:00)
[2019-07-02] MEDS ORDERED: INSULIN ASPART SQ PRN (20:00)
[2019-07-02] MEDS ORDERED: ALPR0.25 PO (20:08)
[2019-07-02] MEDS ORDERED: PANT40TA25 PO (20:08)
--- NOTE | 2019-07-02 20:08 | NUR ---
HEMODIALYSIS Nurse Marina notified patient is TTS. She is aware HD due tomorrow. Dr. Evens Dent is established customer program manager. Has been paged.
[2019-07-02] MEDS ORDERED: PHARMACY COMMUNICATION MISC SCH (20:30)
--- NOTE | 2019-07-02 20:35 | NUR ---
NEPHROLOGY CONSULT RECEIVED CALL BACK FROM DR. HICKEY AT THIS TIME. ORDERED FOR PATIENT TO RECEIVE HEMODIALYSIS TOMORROW.
[2019-07-02] MEDS: ZOLPIDEM TARTRATE 5 MG TAB PO SCH (21:00)
[2019-07-02] MEDS: ONDANSETRON HCL 4 MG/2 ML VIAL IVP SCH (21:12)
[2019-07-02] MEDS: FAMOTIDINE 20MG TAB 20 MG TAB PO SCH (21:12)
[2019-07-02] MEDS: METOPROLOL TARTRATE 50 MG TAB PO SCH (21:12)
[2019-07-02] MEDS: PANTOPRAZOLE SODIUM 40 MG TABLET.DR PO SCH (21:13)
[2019-07-02] MEDS: METOCLOPRAMIDE 10 MG TABLET PO SCH (21:13)
[2019-07-02] MEDS: PREGABALIN 75 MG CAPSULE PO SCH (21:13)
[2019-07-02 23:32] VITALS: BP 147/75
[2019-07-03] MEDS: ONDANSETRON HCL 4 MG/2 ML VIAL IVP SCH ×4 (03:34→18:53)
[2019-07-03 03:40] VITALS: BP 154/59
[2019-07-03 05:03] LABS: HEMATOCRIT 34.6 % (36-48); MEAN CORPUSCULAR HEMOGLOBIN 32.4 pg (27.0-33.0); MEAN CORPUSCULAR HGB CONC 32.8 g/dL (32.0-36.0); MEAN CORPUSCULAR VOLUME 98.9 fL (79-99); PLATELET COUNT (AUTO) 90 K/uL (130-400); RED CELL DISTRIBUTION WIDTH 14.1 % (11.0-15.5); WHITE BLOOD COUNT (AUTO) 5.1 K/uL (4.8-10.8)
[2019-07-03 05:20] LABS: CREATININE 6.7 mg/dL (0.5-1.5); POTASSIUM 5.2 mmol/L (3.5-5.1)
[2019-07-03] MEDS ORDERED: INSULIN HUMULIN R 100 UNIT/ML 3ML ONE (06:05)
[2019-07-03] MEDS: LEVOTHYROXINE 100 MCG TABLET PO SCH (06:06)
[2019-07-03 08:17] VITALS: BP 142/70
[2019-07-03] MEDS: CALCIUM ACETATE 667 MG CAPSULE PO SCH ×3 (08:55→17:00)
[2019-07-03] MEDS: METOCLOPRAMIDE 10 MG TABLET PO SCH ×2 (08:56→20:22)
[2019-07-03] MEDS: CILOSTAZOL 100 MG TAB PO SCH (09:00)
[2019-07-03] MEDS ORDERED: FAMOTIDINE 20MG TAB 20 MG TAB PO SCH (09:00)
[2019-07-03] MEDS ORDERED: INSULIN DEGLUDEC 80 UNIT SQ SCH (09:00)
[2019-07-03] MEDS: METOPROLOL TARTRATE 50 MG TAB PO SCH ×2 (09:00→20:23)
[2019-07-03] MEDS: ISOSORBIDE MONO 30MG TAB SR PO SCH (09:00)
[2019-07-03] MEDS: PREGABALIN 75 MG CAPSULE PO SCH ×2 (09:00→20:23)
[2019-07-03] MEDS: LISINOPRIL 40 MG TABLET PO SCH (09:00)
[2019-07-03] MEDS: VENLAFAXINE HCL 75 MG TAB PO SCH (09:00)
[2019-07-03] MEDS: BUPROPION HCL 150 MG TABLET.SA PO SCH (09:00)
[2019-07-03] MEDS: CETIRIZINE HCL 5 MG TABLET PO SCH (09:00)
[2019-07-03 12:00] VITALS: BP 133/73
[2019-07-03] MEDS ORDERED: HEPARIN SODIUM 5000UNIT/ML 1ML VIAL ONE (15:24)
[2019-07-03] MEDS ORDERED: LIDOCAINE HCL-MPF 1% 2ML VIAL IJ PRN (15:30)
[2019-07-03] MEDS ORDERED: NITROGLYCERIN 0.4 MG SL TAB SL PRN (15:30)
[2019-07-03] MEDS ORDERED: ACETAMINOPHEN 325 MG TAB PO PRN (15:30)
[2019-07-03] MEDS ORDERED: 0.9% SODIUM CHLORIDE 1000 ML IV BAG IV PRN (15:30)
[2019-07-03] MEDS ORDERED: HEPARIN SODIUM 5000UNIT/ML 1ML VIAL IJ PRN ×2 (15:30)
[2019-07-03] MEDS ORDERED: SODIUM CHLORIDE 0.9% 1000ML 1,000 ML IV PRN (15:30)
[2019-07-03 16:19] VITALS: BP 101/71
[2019-07-03] MEDS ORDERED: INSULIN LISPRO 100 UNIT/ML 3ML SQ SCH ×2 (16:30)
--- NOTE | 2019-07-03 16:47 | NUR ---
RD Notification Pt admitted for Gastritis, Dehydration, ESRD, T2DM. Pt receiving Hemodialysis at time of visit. Pt with poor PO (0%) at time of visit due to Nausea with eating, as per Pt. Anticipate nausea to improve with hemodialysis. Pt with multiple food intolerances due to diet restrictions in addition to Gastritis, as per Pt. Pt denies need for diet education, however Pt with multiple altered lab values. RD to follow up with thorough diet education reinforcement and to address Pt's additional food intolerances. At home diet pattern obtained. Recommend to implement 30gm CCD, Renal Dialysis Diet order secondary to ESRD, elevated BG levels( 441). Pt LBM 07/02/19. Pt monitored labs: Na 133, K 5.2, BUN 42, Cr 6.7, GFR 7, Glu 441, Ca 7.7, Alk 238, Alb 2.2, Lipase 329. Pt Grade III Obesity (BMI 43.0). RD to continue to monitor. Please notify RD as additional nutrition concerns arise. Thank you. Addendum: 07/03/19 at [address] Amended: Links added.
[2019-07-03] MEDS: INSULIN HUMULIN R 100 UNIT/ML 3ML SQ SCH ×2 (19:03→20:23)
[2019-07-03 19:20] VITALS: BP 159/91
[2019-07-03] MEDS: FAMOTIDINE 20MG TAB 20 MG TAB PO SCH (20:23)
[2019-07-03] MEDS: PANTOPRAZOLE SODIUM 40 MG TABLET.DR PO SCH (20:23)
[2019-07-03] MEDS: ZOLPIDEM TARTRATE 5 MG TAB PO SCH (20:26)
[2019-07-03] MEDS ORDERED: ZOLPIDEM TARTRATE 5 MG TAB PO PRN (20:45)
[2019-07-04 00:10] VITALS: BP 167/76
[2019-07-04] MEDS: ONDANSETRON HCL 4 MG/2 ML VIAL IVP SCH (01:58)
[2019-07-04 04:35] VITALS: BP 159/57
[2019-07-04] MEDS: LEVOTHYROXINE 100 MCG TABLET PO SCH (06:24)
[2019-07-04] MEDS ORDERED: INSULIN LISPRO 100 UNIT/ML 3ML SQ SCH (07:30)
[2019-07-04 08:06] VITALS: BP 166/81
[2019-07-04] MEDS: METOCLOPRAMIDE 10 MG TABLET PO SCH (08:46)
[2019-07-04] MEDS: PREGABALIN 75 MG CAPSULE PO SCH (08:46)
[2019-07-04] MEDS: LISINOPRIL 40 MG TABLET PO SCH (08:47)
[2019-07-04] MEDS: BUPROPION HCL 150 MG TABLET.SA PO SCH (08:47)
[2019-07-04] MEDS: VENLAFAXINE HCL 75 MG TAB PO SCH (08:48)
[2019-07-04] MEDS: ISOSORBIDE MONO 30MG TAB SR PO SCH (08:48)
[2019-07-04] MEDS: CILOSTAZOL 100 MG TAB PO SCH (08:48)
[2019-07-04] MEDS: CETIRIZINE HCL 5 MG TABLET PO SCH (08:48)
[2019-07-04] MEDS: METOPROLOL TARTRATE 50 MG TAB PO SCH (08:49)
[2019-07-04] MEDS: CALCIUM ACETATE 667 MG CAPSULE PO SCH (08:50)
--- NOTE | 2019-07-04 11:00 | NUR ---
CM NOTE PT IN OBS STATUS AND DISCHARGED TODAY, NO TRIGGERS TO CM, NO CONCNERNS REPORTED BY ANA OR , DETAILED CM ASSESSMENT DEFERRED Addendum: 07/04/19 at 1507 by LAVERNE ALVAREZ RN CM Amended: Links added.
[2019-07-09] MEDS ORDERED: **HM**(Dulaglutide (Trulicity) 0.75 MG SQ SCH (09:00)
== END 2019-07-04 12:00 | disposition home or self-care (01) ==
LOC: EDH 16:31 → EDHIP 16:32 → 3CH 18:23
PROVIDERS: ADMIT Internal Medicine; ATTEND Internal Medicine
DX: K29.70 Gastritis, unspecified, without bleeding (principal); R11.2 Nausea with vomiting, unspecified; E86.0 Dehydration; I12.0 Hypertensive chronic kidney disease with stage 5 chronic kidney disease or end stage renal disease; E11.22 Type 2 diabetes mellitus with diabetic chronic kidney disease; E11.21 Type 2 diabetes mellitus with diabetic nephropathy; N18.6 End stage renal disease; E78.5 Hyperlipidemia, unspecified; J44.9 Chronic obstructive pulmonary disease, unspecified; E11.51 Type 2 diabetes mellitus with diabetic peripheral angiopathy without gangrene; E11.43 Type 2 diabetes mellitus with diabetic autonomic (poly)neuropathy; K31.84 Gastroparesis; I25.10 Atherosclerotic heart disease of native coronary artery without angina pectoris; E11.65 Type 2 diabetes mellitus with hyperglycemia; E87.5 Hyperkalemia; D69.6 Thrombocytopenia, unspecified; D64.9 Anemia, unspecified; Z89.612 Acquired absence of left leg above knee; Z89.511 Acquired absence of right leg below knee; Z87.441 Personal history of nephrotic syndrome; Z86.73 Personal history of transient ischemic attack (TIA), and cerebral infarction without residual deficits; Z99.2 Dependence on renal dialysis; Z91.19 Patient's noncompliance with other medical treatment and regimen; Z79.899 Other long term (current) drug therapy; Z88.0 Allergy status to penicillin; Z88.2 Allergy status to sulfonamides; Z88.6 Allergy status to analgesic agent; Z88.1 Allergy status to other antibiotic agents
CPT/HCPCS: 36415 ×2; 80048; 80053; 82150; 82948 ×8; 83690; 85025; 85027; 96372 ×2; 96374; 96376 ×2; 99284; G0378 ×38; J1644; J1815 ×2; J2405 ×6; 80076; 90935

== ENCOUNTER 2019-07-12 17:17 | Inpatient (IN) | payer MEDICARE ==
[~2019-07-12] VITALS: Ht 167.6 cm; Wt 119.6 kg
[~2019-07-12 17:17] MED LIST changes: +ALPR0.25 PO; +PANT40TA25 PO; -PRED20TA3 PO
[2019-07-12 18:35] LABS: BASOPHILS % (AUTO) 1.1 % (0.0-5.0); EOSINOPHILS % (AUTO) 2.9 % (0.0-8.0); LYMPHOCYTES % (AUTO) 21.6 % (21.0-51.0); MEAN CORPUSCULAR HEMOGLOBIN 31.6 pg (27.0-33.0); MEAN CORPUSCULAR HGB CONC 32.9 g/dL (32.0-36.0); MEAN CORPUSCULAR VOLUME 96.2 fL (79-99); MONOCYTES % (AUTO) 4.8 % (3.0-13.0); NEUTROPHILS % (AUTO) 69.6 % (40.0-77.0); PLATELET COUNT (AUTO) 120 K/uL (130-400); RED BLOOD CELL COUNT(AUTO) 4.26 MIL/uL (4.00-5.50); RED CELL DISTRIBUTION WIDTH 13.8 % (11.0-15.5); WHITE BLOOD COUNT (AUTO) 9.4 K/uL (4.8-10.8)
[2019-07-12] MEDS ORDERED: ONDANSETRON HCL 4 MG/2 ML VIAL ONE (18:52)
[2019-07-12 18:55] LABS: ALBUMIN 2.3 g/dL (3.5-5.0); BILIRUBIN,DIRECT 0.1 mg/dL (0.0-0.3); BILIRUBIN,TOTAL 0.5 mg/dL (0.2-1.0); CREATININE 6.1 mg/dL (0.5-1.5)
[2019-07-12 18:58] LABS: POTASSIUM 6.8 mmol/L (3.5-5.1)
[2019-07-12 20:30] VITALS: BP 179/60
[2019-07-12] MEDS ORDERED: CLONIDINE HCL 0.1 MG TABLET PO PRN (20:45)
[2019-07-12] MEDS ORDERED: GLUCAGON 1MG KIT 1 MG ML IM PRN ×2 (21:00→22:00)
[2019-07-12] MEDS ORDERED: DEXTROSE 50%-WATER 50 ML DISP.SYRIN IV PRN ×2 (21:00→22:00)
[2019-07-12] MEDS ORDERED: PHARMACY COMMUNICATION MISC SCH (21:00)
[2019-07-12] MEDS ORDERED: ZOLPIDEM TARTRATE 5 MG TAB PO PRN (21:15)
[2019-07-12] MEDS: ONDANSETRON HCL 4 MG/2 ML VIAL IVP PRN (21:43)
[2019-07-12] MEDS ORDERED: SODIUM POLYSTYRENE SULFONATE 15 GM/60 ML ML PO SCH (22:00)
[2019-07-13] VITALS (9 sets, daily range): BP systolic 107–205; BP diastolic 64–101
[2019-07-13] MEDS ORDERED: METO10TA3 PO (02:05)
[2019-07-13] MEDS ORDERED: LEVO100T12 PO (02:05)
[2019-07-13] MEDS ORDERED: PANT40TA25 PO (02:05)
[2019-07-13] MEDS ORDERED: VENL75TA63 PO (02:05)
[2019-07-13] MEDS ORDERED: BUPR75TA8 PO (02:05)
[2019-07-13] MEDS ORDERED: ACET1TAB12 PO (02:05)
[2019-07-13] MEDS ORDERED: FAMO20TA8 PO (02:05)
[2019-07-13] MEDS ORDERED: ISOS30TA6 PO (02:05)
[2019-07-13] MEDS ORDERED: LISI40TA4 PO (02:05)
[2019-07-13] MEDS ORDERED: METO-409 PO (02:05)
[2019-07-13] MEDS ORDERED: ZOLP10TA2 PO (02:05)
[2019-07-13] MEDS ORDERED: [UNRECOGNIZED DRUG - CODE] PO (02:05)
[2019-07-13] MEDS ORDERED: CILO100T PO (02:05)
[2019-07-13] MEDS ORDERED: ACETAMINOPHEN-CODEINE 300/30MG TAB PO PRN (02:15)
[2019-07-13] MEDS ORDERED: IBUPROFEN 100 MG/5 ML SUSP UDCUP PO PRN (02:15)
[2019-07-13] MEDS: ONDANSETRON HCL 4 MG/2 ML VIAL IVP PRN (05:00)
[2019-07-13 05:20] LABS: HEMATOCRIT 39.2 % (36-48); MEAN CORPUSCULAR HEMOGLOBIN 32.4 pg (27.0-33.0); MEAN CORPUSCULAR HGB CONC 32.9 g/dL (32.0-36.0); MEAN CORPUSCULAR VOLUME 98.3 fL (79-99); NUCLEATED RED BLOOD CELLS 0.1 % (0.0-0.19); PLATELET COUNT (AUTO) 101 K/uL (130-400); RED BLOOD CELL COUNT(AUTO) 3.99 MIL/uL (4.00-5.50); RED CELL DISTRIBUTION WIDTH 13.8 % (11.0-15.5); WHITE BLOOD COUNT (AUTO) 9.1 K/uL (4.8-10.8)
[2019-07-13 05:36] LABS: ALBUMIN 2.1 g/dL (3.5-5.0); BILIRUBIN,DIRECT 0.1 mg/dL (0.0-0.3); BILIRUBIN,TOTAL 0.5 mg/dL (0.2-1.0); CREATININE 6.3 mg/dL (0.5-1.5); TOTAL PROTEIN, SERUM 7.2 g/dL (6.0-8.3)
[2019-07-13] MEDS: HUMALOG PO SS1 SQ SCH ×4 (06:13→21:00)
--- NOTE | 2019-07-13 07:50 | NUR ---
DR. ACKERMAN IN TO SEE PT. ORDERS ENTERED.
[2019-07-13] MEDS ORDERED: PROMETHAZINE HCL 25 MG/ML 1ML AMPULE IM PRN (08:15)
[2019-07-13] MEDS: ***HM***Metoprolol Succinate 100 MG PO SCH ×2 (09:00→21:00)
[2019-07-13] MEDS: LEVOTHYROXINE 100 MCG TABLET PO SCH (09:19)
[2019-07-13] MEDS: METOCLOPRAMIDE 10 MG TABLET PO SCH ×2 (09:19→21:37)
[2019-07-13] MEDS: PANTOPRAZOLE SODIUM 40 MG TABLET.DR PO SCH ×2 (09:20→21:37)
[2019-07-13] MEDS: LISINOPRIL 40 MG TABLET PO SCH (09:21)
[2019-07-13] MEDS: CILOSTAZOL 100 MG TAB PO SCH (09:21)
[2019-07-13] MEDS: FAMOTIDINE/PF 20 MG/2 ML VIAL IV SCH (09:21)
[2019-07-13] MEDS ORDERED: 0.9% SODIUM CHLORIDE 1000 ML IV BAG IV PRN (10:30)
[2019-07-13] MEDS ORDERED: LIDOCAINE HCL-MPF 1% 2ML VIAL IJ PRN (10:30)
[2019-07-13] MEDS ORDERED: NITROGLYCERIN 0.4 MG SL TAB SL PRN (10:30)
[2019-07-13] MEDS ORDERED: HEPARIN SODIUM 5000UNIT/ML 1ML VIAL IJ PRN ×2 (10:30)
[2019-07-13] MEDS ORDERED: ACETAMINOPHEN 325 MG TAB PO PRN (10:30)
[2019-07-13] MEDS ORDERED: SODIUM CHLORIDE 0.9% 1000ML 1,000 ML IV PRN (10:30)
--- NOTE | 2019-07-13 11:30 | NUR ---
BLOOD SUGARS ORDERED. BID.
--- NOTE | 2019-07-13 12:01 | NUR ---
HD TX. NOW COMPLETE, 700 ML REMOVED. HD NURSE STATES BP WAS LOW. DRESSING TO PERMA CATH INSERTION SITE CHANGE.
--- NOTE | 2019-07-13 14:09 | NUR ---
1308 had pt sign IM Letter,Faxed IM Letter signed then faxed to [phone].Placed in chart under consent tab
--- NOTE | 2019-07-13 14:35 | NUR ---
RD NOTIFICATION DX: GASTRITIS, ESRD ON HD. DIET: RENAL DIALYSIS. PO INTAKE 100% AND HAS GOOD APPETITE. PT WITH NAUSEA AND VOMITING, RECEIVING DIALYSIS AT TIME OF VISIT. RD PENDING TO PROVIDE RENAL DIALYSIS MEDICAL NUTRITION THERAPY. RD WILL FOLLOW UP TO PROVIDE EDUCATION. LBM: 07/13. BMI IS 42.9; CLASSIFIED MORBID OBESE. PT WITH HX OF BKA AMPUTATIONS, NO EDEMA NOTED. ADD GI SOFT/BLAND TO DIET ORDER RD PENDING RENAL DIALYSIS DIET AND NUTRITION EDUCATION RD WILL CONTINUE TO FOLLOW UP Addendum: 07/13/19 at [address] Amended: Links added.
--- NOTE | 2019-07-13 16:02 | NUR ---
INITIAL MET W PT W FAMILY AT BEDSIDE. BEDBOUND, DEPENDENT ON FAM FOR CARE- DM X MANY YEARS, HOME SAFE & ACCESSIBLE WITH ++ DME; MIHIR DUDLEY, HAD TODAY- ROLLED TO IP THIS AM, [facility] TUESDAY OR LATER. DCP IS HOME , SPOUSE TO PROVIDE TRANSPORT Addendum: 07/13/19 at 1605 by LAVERNE ALVAREZ RN CM Amended: Links added.
[2019-07-13] MEDS ORDERED: FAMOTIDINE 20MG TAB 20 MG TAB PO SCH (21:00)
[2019-07-13] MEDS ORDERED: ZOLPIDEM TARTRATE 5 MG TAB PO SCH (21:00)
[2019-07-14 04:00] VITALS: BP 140/70
[2019-07-14 06:10] LABS: HEMATOCRIT 36.7 % (36-48); MEAN CORPUSCULAR HEMOGLOBIN 31.3 pg (27.0-33.0); MEAN CORPUSCULAR HGB CONC 32.7 g/dL (32.0-36.0); MEAN CORPUSCULAR VOLUME 95.7 fL (79-99); PLATELET COUNT (AUTO) 107 K/uL (130-400); RED BLOOD CELL COUNT(AUTO) 3.83 MIL/uL (4.00-5.50); RED CELL DISTRIBUTION WIDTH 14.2 % (11.0-15.5); WHITE BLOOD COUNT (AUTO) 7.7 K/uL (4.8-10.8)
[2019-07-14 06:25] LABS: ALBUMIN 1.9 g/dL (3.5-5.0); BILIRUBIN,TOTAL 0.4 mg/dL (0.2-1.0); CREATININE 5.6 mg/dL (0.5-1.5); POTASSIUM 4.3 mmol/L (3.5-5.1); TOTAL PROTEIN, SERUM 6.7 g/dL (6.0-8.3)
[2019-07-14 06:53] LABS: EOSINOPHILS % (MANUAL) 6 % (1-6); LYMPHOCYTES % (MANUAL) 36 % (22-44); MAN.DIFF COMMENT-IMPRESSION MANUAL DIFFERENTIAL; MONOCYTES % (MANUAL) 2 % (2-9); SEGMENTED NEUTROPHILS % 56 % (40-70)
[2019-07-14 06:54] LABS: PLATELET MORPHOLOGY COMMENT SLIGHTLY DECREASED
[2019-07-14] MEDS: HUMALOG PO SS1 SQ SCH ×3 (07:05→16:30)
[2019-07-14 08:00] VITALS: BP 164/77
[2019-07-14 11:00] VITALS: BP 152/77
--- NOTE | 2019-07-14 11:45 | NUR ---
Attempted to provide dialysis diet education. At time of RD visit, pt in dialysis treatment and refused teaching. Pt states she has been in dialysis for 1yr, goes to [facility] in [place] and her dietitian is Ana. Pt encouraged to follow up with Ana if education not able to be given during hospital stay. Pt verbalize agreement and states she has no nutrition concerns. Addendum: 07/14/19 at [address] Amended: Links added.
[2019-07-14] MEDS: FAMOTIDINE/PF 20 MG/2 ML VIAL IV SCH (14:19)
[2019-07-14] MEDS: METOCLOPRAMIDE 10 MG TABLET PO SCH (14:20)
[2019-07-14] MEDS: CILOSTAZOL 100 MG TAB PO SCH (14:21)
[2019-07-14] MEDS: LEVOTHYROXINE 100 MCG TABLET PO SCH (14:21)
[2019-07-14] MEDS: PANTOPRAZOLE SODIUM 40 MG TABLET.DR PO SCH (14:21)
[2019-07-14 16:00] VITALS: BP 157/76
[2019-07-14] MEDS: LISINOPRIL 40 MG TABLET PO SCH (18:45)
[2019-07-14] MEDS: ***HM***Metoprolol Succinate 100 MG PO SCH (18:45)
[2019-07-17 06:10] LABS: HEPATITIS A ANTIBODY IGM Negative (Negative); HEPATITIS B CORE IGM Negative (Negative); HEPATITIS Bs ANTIGEN SCREEN P Negative (Negative)
== END 2019-07-14 20:40 | disposition home or self-care (01) | DRG 391 ==
LOC: EDH 17:17 → OBSVTOIN 17:38 → EDHIP 17:38 → 3BH 20:24
PROVIDERS: ADMIT Internal Medicine; ATTEND Internal Medicine
PROC: 5A1D70Z Performance of Urinary Filtration, Intermittent, Less than 6 Hours Per Day (ICD-10-PCS; principal; 2019-07-13)
PROC: 5A1D70Z Performance of Urinary Filtration, Intermittent, Less than 6 Hours Per Day (ICD-10-PCS; 2019-07-14)
DX: R11.2 Nausea with vomiting, unspecified (principal); N18.6 End stage renal disease; Z68.41 Body mass index [BMI] 40.0-44.9, adult; I12.0 Hypertensive chronic kidney disease with stage 5 chronic kidney disease or end stage renal disease; E11.43 Type 2 diabetes mellitus with diabetic autonomic (poly)neuropathy; K31.84 Gastroparesis; K29.70 Gastritis, unspecified, without bleeding; E86.0 Dehydration; E11.22 Type 2 diabetes mellitus with diabetic chronic kidney disease; E11.51 Type 2 diabetes mellitus with diabetic peripheral angiopathy without gangrene; E66.01 Morbid (severe) obesity due to excess calories; I25.10 Atherosclerotic heart disease of native coronary artery without angina pectoris; E87.5 Hyperkalemia; E78.5 Hyperlipidemia, unspecified; Z91.15 Patient's noncompliance with renal dialysis; Z99.2 Dependence on renal dialysis; Z88.8 Allergy status to other drugs, medicaments and biological substances; Z88.0 Allergy status to penicillin; Z88.1 Allergy status to other antibiotic agents; Z88.2 Allergy status to sulfonamides; T50.995A Adverse effect of other drugs, medicaments and biological substances, initial encounter
CPT/HCPCS: 36415; 80048; 80053; 80074; 80076; 82150; 82948; 83690; 85025; 85027; 90935; G0378; J1644; J2405; J2550; J3490

== ENCOUNTER 2019-09-12 08:37 | Day surgery (SDC) | payer MEDICARE ==
[~2019-09-12 08:37] MED LIST changes: -ALPR0.25 PO; -BUPR75TA8 PO; -CALC667C10 PO; -CETI10TA86 PO; -DULA0.75 SQ; +FERR325T22 PO; -INSU100C6 SQ; -INSU100I24 SQ; -LEVO100 PO; +LEVO100T12 PO; -MEDR10TA PO; -ONDA8TAB11 PO; +ONDA8TAB12 PO; -PREG150C PO; +PREG150C46 PO; +SODIUM CHLORIDE 0.9% 1000ML 1,000 ML IV ONE; +VENL-61 PO; -VENL75TA63 PO; +ZOLP10TA2 PO; -ZOLP10TA6 PO
[2019-09-12] MEDS ORDERED: INSU100I3 SQ (10:49)
[2019-09-12] MEDS ORDERED: INSU100V37 SQ (10:49)
[2019-09-12 11:04] LABS: CREATININE 4.2 mg/dL (0.5-1.5); POTASSIUM 4.5 mmol/L (3.5-5.1)
[2019-09-12 11:06] VITALS: BP 160/82
[2019-09-12] MEDS ORDERED: PROPOFOL 10 MG/ML 20ML VIAL IV ONE (11:49)
[2019-09-12 12:13] VITALS: BP 112/54
[2019-09-12 12:18] VITALS: BP 105/94
[2019-09-12 12:23] VITALS: BP 143/73
--- NOTE | 2019-09-12 13:03 | NUR ---
PT LEFT VIA OWN PERSONAL WHEELCHAIR, IN PVT CAR WITH SPOUSE, D/C INSTRUCTION GIVEN TO SPOUSE. PT. TOLD TO CALL TODAY TO RESCHEDULE PROCEDURE. PT LEFT STABLE AND NO COMPLICATION.
[2019-09-12 13:54] VITALS: BP 141/68
== END 2019-09-12 13:03 | disposition home or self-care (01) ==
LOC: DAH 08:37 → ENDO 08:37
PROVIDERS: ATTEND Internal Medicine Gastroenterology
DX: R19.7 Diarrhea, unspecified (principal); K29.50 Unspecified chronic gastritis without bleeding; K31.89 Other diseases of stomach and duodenum; E78.5 Hyperlipidemia, unspecified; F41.9 Anxiety disorder, unspecified; F32.9 Major depressive disorder, single episode, unspecified; E03.9 Hypothyroidism, unspecified; E11.22 Type 2 diabetes mellitus with diabetic chronic kidney disease; N18.6 End stage renal disease; E11.40 Type 2 diabetes mellitus with diabetic neuropathy, unspecified; Z88.2 Allergy status to sulfonamides; Z88.0 Allergy status to penicillin; Z98.890 Other specified postprocedural states; Z79.84 Long term (current) use of oral hypoglycemic drugs; Z79.899 Other long term (current) drug therapy; Z86.73 Personal history of transient ischemic attack (TIA), and cerebral infarction without residual deficits; Z79.4 Long term (current) use of insulin; Z82.49 Family history of ischemic heart disease and other diseases of the circulatory system; Z83.3 Family history of diabetes mellitus
CPT/HCPCS: 36415; 43239; 45378; 80048; 82948 ×2; 84703; 88305; A4215; A4221; A4222; A4223; A4606; A4620; A4663; J2704; J7030

== ENCOUNTER 2019-09-28 19:13 | Observation (INO) | payer MEDICARE ==
[~2019-09-28 19:13] MED LIST changes: +INSU100I3 SQ; +INSU100V37 SQ; -SODIUM CHLORIDE 0.9% 1000ML 1,000 ML IV ONE
[2019-09-28 20:04] LABS: BASOPHILS % (AUTO) 0.3 % (0.0-5.0); EOSINOPHILS % (AUTO) 2.9 % (0.0-8.0); HEMATOCRIT 33.7 % (36-48); LYMPHOCYTES % (AUTO) 17.1 % (21.0-51.0); MEAN CORPUSCULAR HEMOGLOBIN 31.7 pg (27.0-33.0); MEAN CORPUSCULAR VOLUME 105.6 fL (79-99); MONOCYTES % (AUTO) 6.5 % (3.0-13.0); NEUTROPHILS % (AUTO) 72.7 % (40.0-77.0); PLATELET COUNT (AUTO) 89 K/uL (130-400); RED BLOOD CELL COUNT(AUTO) 3.19 MIL/uL (4.00-5.50); WHITE BLOOD COUNT (AUTO) 9.6 K/uL (4.8-10.8)
[2019-09-28 20:58] LABS: BILIRUBIN,TOTAL 0.4 mg/dL (0.2-1.0); CREATININE 5.6 mg/dL (0.5-1.5); TOTAL PROTEIN, SERUM 7.2 g/dL (6.0-8.3)
[2019-09-28 21:01] LABS: POTASSIUM 6.3 mmol/L (3.5-5.1)
[2019-09-28] MEDS ORDERED: SODIUM POLYSTYRENE SULFONATE 15 GM/60 ML ML ONE (21:49)
[2019-09-28] MEDS ORDERED: SODIUM BICARB 50MEQ 50ML VIAL ONE (21:50)
[2019-09-28] MEDS ORDERED: CALCIUM GLUCONATE 1 GM/10 ML VIAL IV ONE (21:50)
[2019-09-28] MEDS ORDERED: DEXTROSE 50%-WATER 50 ML DISP.SYRIN IV ONE (21:51)
[2019-09-28] MEDS ORDERED: INSULIN HUMULIN R 100 UNIT/ML 3ML ONE (21:51)
[2019-09-28] MEDS ORDERED: ALBUTEROL SULFATE 0.083% 2.5 MG/3 ML INH IH ONE (22:10)
[2019-09-28] MEDS ORDERED: LABETALOL 20 MG/4 ML DISP.SYRIN IV ONE (22:27)
--- NOTE | 2019-09-29 06:52 | NUR ---
stroke 2015 left side weakness Addendum: 09/29/19 at 0705 by MAGDI PATEL RN RN Amended: Links added.
[2019-09-29] MEDS ORDERED: SUCR1TAB2 PO (07:38)
[2019-09-29] MEDS ORDERED: HEPARIN SODIUM 5000UNIT/ML 1ML VIAL ONE (09:25)
--- NOTE | 2019-09-29 12:55 | NUR ---
AMBULATION LEFT AND RIGHT LEGS Addendum: 09/29/19 at 1303 by MAGDI PATEL RN RN Amended: Links added.
--- NOTE | 2019-09-29 13:04 | NUR ---
DISCHARGE INSTRUCTION GIVEN AND PATIENT VERBALIZED UNDERSTANDING REVIEWED FOLLOW-UP APPOINTMENT ON TUESDAY WITH DR KELSY SAMUEL IN CLINIC AND TO CONTINUE HER HOME MEDICATION DIRECTED , IV REMOVED WITH CATHETER INTACT NO QUESTIONS OR CONCCERNS AT THIS TIME WAITING FOR RIDE WENT TO GET THE VAN.
== END 2019-09-29 12:35 | disposition home or self-care (01) ==
LOC: EDH 19:13 → EDHIP 09-29 00:44
PROVIDERS: ADMIT Family Medicine; ATTEND Family Medicine
DX: E87.5 Hyperkalemia (principal); E87.70 Fluid overload, unspecified; K52.9 Noninfective gastroenteritis and colitis, unspecified; E11.22 Type 2 diabetes mellitus with diabetic chronic kidney disease; I12.0 Hypertensive chronic kidney disease with stage 5 chronic kidney disease or end stage renal disease; N18.6 End stage renal disease; E11.51 Type 2 diabetes mellitus with diabetic peripheral angiopathy without gangrene; K31.84 Gastroparesis; E78.5 Hyperlipidemia, unspecified; E11.43 Type 2 diabetes mellitus with diabetic autonomic (poly)neuropathy; Z99.2 Dependence on renal dialysis; Z79.4 Long term (current) use of insulin; Z89.611 Acquired absence of right leg above knee; Z89.612 Acquired absence of left leg above knee; Z87.442 Personal history of urinary calculi; Z88.0 Allergy status to penicillin; Z88.2 Allergy status to sulfonamides; Z88.6 Allergy status to analgesic agent; Z88.1 Allergy status to other antibiotic agents
CPT/HCPCS: 36415 ×2; 80053; 82948 ×3; 84132; 85025; 93005; 94640; 99284; G0378 ×9; J0610; J1644; J1815; J3490; J7070; 90935

== ENCOUNTER 2019-10-19 12:12 | Observation (INO) | payer MEDICARE ==
[~2019-10-19] VITALS: Ht 167.6 cm; Wt 126.6 kg
[~2019-10-19 12:12] MED LIST changes: -FERR325T22 PO; -PANT40TA25 PO; +SUCR1TAB2 PO
[2019-10-19 13:15] VITALS: BP 163/97
[2019-10-19 13:59] LABS: HEMATOCRIT 33.3 % (36-48); MEAN CORPUSCULAR HGB CONC 32.1 g/dL (32.0-36.0); MEAN CORPUSCULAR VOLUME 99.7 fL (79-99); NUCLEATED RED BLOOD CELLS 0.3 % (0.0-0.19); PLATELET COUNT (AUTO) 103 K/uL (130-400); RED BLOOD CELL COUNT(AUTO) 3.34 MIL/uL (4.00-5.50); RED CELL DISTRIBUTION WIDTH 13.6 % (11.0-15.5)
[2019-10-19 14:06] LABS: POTASSIUM 4.5 mmol/L (3.5-5.1)
[2019-10-19 14:11] LABS: ALBUMIN 2.2 g/dL (3.5-5.0); BILIRUBIN,DIRECT 0.1 mg/dL (0.0-0.3); BILIRUBIN,TOTAL 0.4 mg/dL (0.2-1.0); TOTAL PROTEIN, SERUM 7.8 g/dL (6.0-8.3)
[2019-10-19 16:00] VITALS: BP 160/80
[2019-10-19] MEDS ORDERED: SODPOLY15G PO (18:47)
[2019-10-19] MEDS ORDERED: IPRA3AMP24 IH (18:47)
[2019-10-19] MEDS ORDERED: ISOS30TA6 PO (18:47)
[2019-10-19] MEDS ORDERED: PREG150C PO (18:47)
[2019-10-19] MEDS ORDERED: BUPR75TA8 PO (18:47)
[2019-10-19] MEDS ORDERED: INSU100I24 SQ (18:47)
[2019-10-19] MEDS ORDERED: ALPR0.25 PO (18:47)
[2019-10-19] MEDS ORDERED: CIPR-278 PO (18:47)
[2019-10-19] MEDS ORDERED: AMLO10TA7 PO (18:47)
[2019-10-19] MEDS ORDERED: ACETAMINOPHEN 325 MG TAB PO PRN (19:15)
--- NOTE | 2019-10-19 19:30 | NUR ---
PM Assessment Received pt with family at the bedside, routine assessment done, plan of care discuss, made aware that I will be starting an IV access as we have an order to start D10W at 50cc to aide with the issue of hypoglycemia. Per pt stated that since she did not eat well today, she had some sugar candy & noted had regular soda at her table. Pt instructed not to take any sugar candy & stop drinking the soda as we will be checking her blood sugar & we don't want it to be super elevated, agreed. Pt also c/o of right stump pain scale 8/10, medicated with Ringsted as ordered.
[2019-10-19] MEDS: HYDROCODONE/ACETAMINOPHEN 5/325 MG TAB PO PRN (19:36)
[2019-10-19 19:51] VITALS: BP 173/80
--- NOTE | 2019-10-19 21:10 | NUR ---
Re: BS 230 Pt was admitted for hypoglycemia reported glucose reading 46 at the clinic, pt stated that she had some sugar candy since she knows that her blood sugar won't go up quick as she didn't eat well today. Pt advise not to take any sugar pills at this time as her blood sugar reading now is 230. Explained to the pt that I will hold on to the order to start her with D10W at 50cc/hr to avoid hyperglycemia & starting IV access. Made pt aware that I will notify in AM of this issue.
[2019-10-19 23:39] VITALS: BP 171/91
[2019-10-20] MEDS ORDERED: DEXTROSE 50%-WATER 50 ML DISP.SYRIN IV PRN
[2019-10-20] MEDS ORDERED: GLUCAGON 1MG KIT 1 MG ML IM PRN
[2019-10-20 04:00] VITALS: BP 163/83
[2019-10-20] MEDS: HYDROCODONE/ACETAMINOPHEN 5/325 MG TAB PO PRN (04:11)
[2019-10-20] MEDS ORDERED: DEXTROSE 10%-WATER 1,000 ML IV ONE (05:45)
[2019-10-20] MEDS ORDERED: DEXTROSE 10%-WATER 1,000 ML IV SCH (05:45)
[2019-10-20] MEDS ORDERED: ALPRAZOLAM 0.25 MG TABLET PO PRN (06:30)
[2019-10-20] MEDS ORDERED: IPRATROPIUM/ALBUTEROL SULFATE 3 ML SOLUTION IH PRN (06:30)
--- NOTE | 2019-10-20 06:38 | NUR ---
Re: Rounds, Dr. Ariana Lane in, updated with pt's status, made aware that pt came in with hypoglycemia initial sugar reading of 46, pt stated took sugar candies with regular soda ordered D10W at 50cc/hr held last night for BS 230, started only this morning as BS 45, asymptomatic. Dr. Lane advise the pt regarding changing her type of insulin she uses at home due to his kidney issues. Per pt mention to Dr. Lane due to her newly diagnose of Celiac Disease, she is still adjusting with her diet. MD inform pt if she can manage her issue with low sugar reading which pt claimed she can, possibly be discharge later this afternoon. MD also made aware of pt' BP reading, agreed to resume home medication except for her insulin coverage. I verified with the pt as noted with Cipro entered as home meds, per pt stated she did complete the dose of such medication.
[2019-10-20] MEDS: INSULIN HUMULIN R 100 UNIT/ML 3ML SQ SCH ×2 (07:30→11:30)
[2019-10-20] MEDS ORDERED: LEVOTHYROXINE 100 MCG TABLET PO SCH (07:30)
[2019-10-20 08:00] VITALS: BP 167/77
[2019-10-20] MEDS ORDERED: VENLAFAXINE HCL XR 37.5 MG CAP PO SCH (08:00)
[2019-10-20] MEDS ORDERED: BUPROPION HCL 75 MG PO SCH (09:00)
[2019-10-20] MEDS ORDERED: METOPROLOL SUCCINATE 50 MG TAB.SR.24H PO SCH (09:00)
[2019-10-20] MEDS ORDERED: METOCLOPRAMIDE 10 MG TABLET PO SCH (09:00)
[2019-10-20] MEDS ORDERED: SODIUM POLYSTYRENE SULFONATE 15 GM/60 ML ML PO SCH ×2 (09:00→10:15)
[2019-10-20] MEDS ORDERED: LISINOPRIL 40 MG TABLET PO SCH (09:00)
[2019-10-20] MEDS ORDERED: AMLODIPINE BESYLATE 5 MG TAB PO SCH (09:00)
[2019-10-20] MEDS ORDERED: ISOSORBIDE MONO 30MG TAB SR PO SCH (09:00)
[2019-10-20] MEDS ORDERED: CILOSTAZOL 100 MG TAB PO SCH (09:00)
[2019-10-20] MEDS ORDERED: PREGABALIN 75 MG CAPSULE PO SCH (09:00)
[2019-10-20] MEDS ORDERED: HEPARIN SODIUM 5000UNIT/ML 1ML VIAL ONE (11:00)
[2019-10-20 12:00] VITALS: BP 152/86
[2019-10-20] MEDS ORDERED: NITROGLYCERIN 0.4 MG SL TAB SL PRN (13:45)
[2019-10-20] MEDS ORDERED: LIDOCAINE HCL-MPF 1% 2ML VIAL IJ PRN (13:45)
[2019-10-20] MEDS ORDERED: ACETAMINOPHEN 325 MG TAB PO PRN (13:45)
[2019-10-20] MEDS ORDERED: 0.9% SODIUM CHLORIDE 1000 ML IV BAG IV PRN (13:45)
[2019-10-20] MEDS ORDERED: SODIUM CHLORIDE 0.9% 1000ML 1,000 ML IV PRN (13:45)
[2019-10-20] MEDS ORDERED: HEPARIN SODIUM 5000UNIT/ML 1ML VIAL IJ PRN ×2 (13:45)
[2019-10-20] MEDS ORDERED: ZOLPIDEM TARTRATE 5 MG TAB PO SCH (21:00)
== END 2019-10-20 17:15 | disposition home or self-care (01) ==
LOC: EDH 12:12 → EDHIP 12:43 → 3AH 13:10
PROVIDERS: ADMIT Internal Medicine; ATTEND Internal Medicine
DX: E11.649 Type 2 diabetes mellitus with hypoglycemia without coma (principal); E11.22 Type 2 diabetes mellitus with diabetic chronic kidney disease; I12.0 Hypertensive chronic kidney disease with stage 5 chronic kidney disease or end stage renal disease; N18.6 End stage renal disease; E78.5 Hyperlipidemia, unspecified; Z99.2 Dependence on renal dialysis; W05.0XXA Fall from non-moving wheelchair, initial encounter; Y93.89 Activity, other specified; Y92.89 Other specified places as the place of occurrence of the external cause; Y99.8 Other external cause status
CPT/HCPCS: 36415 ×2; 80048; 80076; 82948 ×10; 85027; 86704; 86706; 87340 ×2; 87520; 94664; 99284; G0378 ×13; J1644; J3490; 90935

== ENCOUNTER 2019-11-23 11:09 | Emergency (ER) | payer MEDICARE ==
[~2019-11-23 11:09] MED LIST changes: -ACET1TAB12 PO; +ALPR0.25 PO; +AMLO10TA7 PO; +BUPR75TA8 PO; -FAMO20TA8 PO; +INSU100I24 SQ; -INSU100V37 SQ; +IPRA3AMP24 IH; -ONDA8TAB12 PO; +PREG150C PO; -PREG150C46 PO; +SODPOLY15G PO; -SUCR1TAB2 PO
[2019-11-23 11:44] LABS: BASOPHILS % (AUTO) 0.4 % (0.0-5.0); EOSINOPHILS % (AUTO) 3.4 % (0.0-8.0); HEMATOCRIT 36.8 % (36-48); LYMPHOCYTES % (AUTO) 16.1 % (21.0-51.0); MEAN CORPUSCULAR HEMOGLOBIN 31.9 pg (27.0-33.0); MEAN CORPUSCULAR HGB CONC 31.5 g/dL (32.0-36.0); MEAN CORPUSCULAR VOLUME 101.1 fL (79-99); MONOCYTES % (AUTO) 5.5 % (3.0-13.0); NEUTROPHILS % (AUTO) 74.1 % (40.0-77.0); PLATELET COUNT (AUTO) 92 K/uL (130-400); RED BLOOD CELL COUNT(AUTO) 3.64 MIL/uL (4.00-5.50); RED CELL DISTRIBUTION WIDTH 13.2 % (11.0-15.5); WHITE BLOOD COUNT (AUTO) 10.2 K/uL (4.8-10.8)
[2019-11-23] MEDS ORDERED: ALBUTEROL SULFATE 0.083% 2.5 MG/3 ML INH IH ONE (11:54)
[2019-11-23 12:00] LABS: INR 0.92 (0.85-1.15); PARTIAL THROMBOPLASTIN TIME 27.9 SEC (26.3-35.5)
[2019-11-23] MEDS ORDERED: FUROSEMIDE 10 MG/ML 4ML VIAL ONE (12:02)
[2019-11-23] MEDS ORDERED: FUROSEMIDE 10 MG/ML 2ML VIAL ONE (12:02)
[2019-11-23] MEDS ORDERED: SODIUM POLYSTYRENE SULFONATE 15 GM/60 ML ML ONE (12:03)
[2019-11-23 12:04] LABS: ALBUMIN 2.2 g/dL (3.5-5.0); BILIRUBIN,TOTAL 0.4 mg/dL (0.2-1.0); CREATININE 6.9 mg/dL (0.5-1.5)
[2019-11-23 12:09] LABS: POTASSIUM 6.2 mmol/L (3.5-5.1)
== END 2019-11-23 13:45 | disposition home or self-care (01) ==
LOC: EDH 11:09
DX: E87.5 Hyperkalemia (principal); I12.0 Hypertensive chronic kidney disease with stage 5 chronic kidney disease or end stage renal disease; E11.22 Type 2 diabetes mellitus with diabetic chronic kidney disease; N18.6 End stage renal disease; E78.5 Hyperlipidemia, unspecified; Z88.0 Allergy status to penicillin; Z88.2 Allergy status to sulfonamides; Z88.1 Allergy status to other antibiotic agents; Z88.6 Allergy status to analgesic agent
CPT/HCPCS: 36415; 71045; 80053; 82550; 84484; 85025; 85610; 85730; 93005; 94640; 96374; 99285; J1940 ×2

== ENCOUNTER 2020-04-22 15:32 | Inpatient (IN) | payer MEDICARE ==
[~2020-04-22] VITALS: Ht 167.6 cm; Wt 132.9 kg
[2020-04-22 15:57] LABS: BASOPHILS % (AUTO) 0.6 % (0.0-5.0); EOSINOPHILS % (AUTO) 4.1 % (0.0-8.0); HEMATOCRIT 31.8 % (36-48); LYMPHOCYTES % (AUTO) 19.3 % (21.0-51.0); MEAN CORPUSCULAR HGB CONC 31.4 g/dL (32.0-36.0); MONOCYTES % (AUTO) 7.5 % (3.0-13.0); NEUTROPHILS % (AUTO) 68.3 % (40.0-77.0); PLATELET COUNT (AUTO) 82 K/uL (130-400); RED BLOOD CELL COUNT(AUTO) 3.03 MIL/uL (4.00-5.50); RED CELL DISTRIBUTION WIDTH 14.4 % (11.0-15.5)
[2020-04-22 16:22] LABS: ALBUMIN 2.3 g/dL (3.5-5.0); BILIRUBIN,TOTAL 0.6 mg/dL (0.2-1.0); TOTAL PROTEIN, SERUM 8.3 g/dL (6.0-8.3)
[2020-04-22 16:25] LABS: CREATININE 11.7 mg/dL (0.5-1.5); POTASSIUM 8.3 mmol/L (3.5-5.1)
[2020-04-22] MEDS ORDERED: CALCIUM GLUCONATE 1 GM/10 ML VIAL IV ONE (16:34)
[2020-04-22] MEDS ORDERED: DEXTROSE 50%-WATER 50 ML DISP.SYRIN IV ONE ×2 (18:28→22:33)
[2020-04-22 23:15] VITALS: BP 149/84
--- NOTE | 2020-04-22 23:15 | NUR ---
ADMIT PT ADMITTED TO ROOM 328, AAOX3.NO DISTRESS NOTED. ASSISTED PT IN BED AND KEPT COMFORTABLE WITH HOB ELEVATED. ADMISSION CARE DONE. ADMISSION DATA BASE COMPLETED. ORIENTED TO ROOM AND UNIT. IN FOR MORE CARE AND MANAGEMENT. Addendum: 04/22/20 at 2357 by GINNY MARIANO RN RN Amended: Links added.
[2020-04-22] MEDS ORDERED: DEXTROSE 50%-WATER 50 ML DISP.SYRIN IV PRN (23:30)
[2020-04-22] MEDS ORDERED: GLUCAGON 1MG KIT 1 MG ML IM PRN (23:30)
[2020-04-23] MEDS ORDERED: ONDA8TAB12 PO (00:54)
--- NOTE | 2020-04-23 02:00 | NUR ---
ROUNDS PT FAIRLY ASLEEP. NO DISTRESS NOTED. KEPT UNDISTURBED FOR NOW. WILL MONITOR PT. CALL LIGHT WITHIN REACH.
[2020-04-23 04:00] VITALS: BP 132/60
[2020-04-23 04:57] LABS: MEAN CORPUSCULAR HGB CONC 32.1 g/dL (32.0-36.0); MEAN CORPUSCULAR VOLUME 102.8 fL (79-99); RED BLOOD CELL COUNT(AUTO) 2.82 MIL/uL (4.00-5.50); WHITE BLOOD COUNT (AUTO) 8.5 K/uL (4.8-10.8)
--- NOTE | 2020-04-23 05:20 | NUR ---
BLOOD SUGAR PCP REPORTED A BLOOD SUGAR=55. PT IS SHAKY BUT AAOX3. PROVIDED WITH JUICE AND SNACKS. ATE WITH APPETITE. WILL RE-CHECK BLOOD SUGAR.
[2020-04-23 05:41] LABS: ALBUMIN 2.1 g/dL (3.5-5.0); BILIRUBIN,TOTAL 0.6 mg/dL (0.2-1.0); PHOSPHORUS 7.3 mg/dL (2.5-4.9); POTASSIUM 5.7 mmol/L (3.5-5.1); TOTAL PROTEIN, SERUM 7.5 g/dL (6.0-8.3)
[2020-04-23 05:51] LABS: CREATININE 8.3 mg/dL (0.5-1.5)
[2020-04-23] MEDS: INSULIN HUMULIN R 100 UNIT/ML 3ML SQ SCH ×4 (06:41→21:00)
[2020-04-23] MEDS ORDERED: COMPOUND PO MISCELLANEOUS 1 EACH MISC MISC PRN (07:45)
[2020-04-23] MEDS ORDERED: LIDOCAINE HCL 2% VISCOUS 30 ML, MAG HYDROX/AL HYDROX/SIMETH 30 ML, DICYCLOMINE HCL 20 MG PO PRN ×3 (07:45)
[2020-04-23 08:00] VITALS: BP 163/57
[2020-04-23] MEDS ORDERED: SODIUM POLYSTYRENE SULFONATE 15 GM/60 ML ML PO SCH (09:30)
[2020-04-23] MEDS: PANTOPRAZOLE SODIUM 40 MG TABLET.DR PO SCH (12:03)
[2020-04-23 12:06] VITALS: BP 97/71
[2020-04-23] MEDS: ACETAMINOPHEN 325 MG TAB PO PRN ×2 (12:11→23:11)
[2020-04-23 16:00] VITALS: BP 120/45
[2020-04-23 20:20] VITALS: BP 138/49
[2020-04-23] MEDS: ONDANSETRON HCL 4 MG/2 ML VIAL IVP PRN (21:01)
[2020-04-24 00:24] VITALS: BP 158/48
[2020-04-24] MEDS: ONDANSETRON HCL 4 MG/2 ML VIAL IVP PRN ×2 (01:32→11:40)
[2020-04-24 04:24] VITALS: BP 140/67
[2020-04-24 04:36] LABS: BASOPHILS % (AUTO) 0.6 % (0.0-5.0); EOSINOPHILS % (AUTO) 3.7 % (0.0-8.0); HEMATOCRIT 29.2 % (36-48); LYMPHOCYTES % (AUTO) 19.1 % (21.0-51.0); MEAN CORPUSCULAR HEMOGLOBIN 33.1 pg (27.0-33.0); MEAN CORPUSCULAR HGB CONC 31.8 g/dL (32.0-36.0); MEAN CORPUSCULAR VOLUME 103.9 fL (79-99); MONOCYTES % (AUTO) 9.1 % (3.0-13.0); NEUTROPHILS % (AUTO) 67.4 % (40.0-77.0); PLATELET COUNT (AUTO) 66 K/uL (130-400); RED BLOOD CELL COUNT(AUTO) 2.81 MIL/uL (4.00-5.50); RED CELL DISTRIBUTION WIDTH 14.1 % (11.0-15.5); WHITE BLOOD COUNT (AUTO) 6.7 K/uL (4.8-10.8)
[2020-04-24 05:15] LABS: CREATININE 9.7 mg/dL (0.5-1.5); POTASSIUM 6.7 mmol/L (3.5-5.1)
[2020-04-24] MEDS: INSULIN HUMULIN R 100 UNIT/ML 3ML SQ SCH ×3 (05:17→16:30)
--- NOTE | 2020-04-24 05:25 | NUR ---
called doctor lion for potassium of 6.7. he ordered kayekelate and for patient to be dialysed first. spoke with shen and told her to dialysise patient first
[2020-04-24] MEDS ORDERED: SODIUM POLYSTYRENE SULFONATE 15 GM/60 ML ML ONE (05:27)
[2020-04-24] MEDS ORDERED: SODIUM POLYSTYRENE SULFONATE 15 GM/60 ML ML PO SCH (05:30)
[2020-04-24] MEDS ORDERED: LEVOTHYROXINE 100 MCG TABLET ONE (05:50)
[2020-04-24] MEDS: ACETAMINOPHEN 325 MG TAB PO PRN (06:56)
[2020-04-24] MEDS ORDERED: LEVOTHYROXINE 100 MCG TABLET PO SCH (07:30)
[2020-04-24 08:00] VITALS: BP 164/50
[2020-04-24] MEDS ORDERED: ONDANSETRON ODT 4 MG TAB PO SCH (08:00)
[2020-04-24] MEDS ORDERED: VENLAFAXINE HCL 75 MG TAB PO SCH (08:00)
[2020-04-24] MEDS ORDERED: CILOSTAZOL 100 MG TAB PO SCH (09:00)
[2020-04-24] MEDS ORDERED: ISOSORBIDE MONO 30MG TAB SR PO SCH (09:00)
[2020-04-24] MEDS ORDERED: METOPROLOL SUCCINATE 50 MG TAB.SR.24H PO SCH (09:00)
[2020-04-24] MEDS ORDERED: METOCLOPRAMIDE 10 MG TABLET PO SCH (09:00)
[2020-04-24] MEDS ORDERED: BUPROPION HCL 150 MG TABLET.SA PO SCH (09:00)
[2020-04-24] MEDS: PANTOPRAZOLE SODIUM 40 MG TABLET.DR PO SCH (11:09)
[2020-04-24 12:00] VITALS: BP 105/57
[2020-04-24] MEDS ORDERED: HEPARIN SODIUM 5000UNIT/ML 1ML VIAL ONE (12:46)
--- NOTE | 2020-04-24 13:54 | NUR ---
RD NOTIFICATION Pt admitted with hyperkalemia. Hx ESRD on HD. Pt with 75gm CC, Renal Dialysis diet order in place. Pt with good PO intake at 100%. Pt with Obesity Class III. Monitored labs: K 6.7, Cr 9.7, GFR 5, BUN 50. Recommend Nepro QD Nutrition education faxed to 3D, Attempt to notify RN, no answer at unit or cover x2. RD to continue to monitor. Please notify as additional nutrition concerns arise. Thank you. Addendum: 04/24/20 at [address] Amended: Links added.
--- NOTE | 2020-04-24 13:59 | NUR ---
NUTRITION SOFTWARE CONFIGURATION SPECIALIST-ASSISTED NUTRITION EDUCATION. Renal Dialysis nutrition education faxed to [facility]D. Nutrition education faxed to 3D, Attempt to notify RN, no answer at unit or cover x2. Addendum: 04/24/20 at [address] Amended: Links added.
--- NOTE | 2020-04-24 14:00 | NUR ---
CM NOTE/IA MEET WITH PATIENT IN ROOM. PER PATIENT, LIVES WITH FAMILY, IS DEPENDENT WITH ADLS, HAS [place] FAMILY PROVIDER SERVICES >30HR, HAS USE OF 02 CONCENTRATOR, BED BOUND, [facility] WITH USE OF EMS TRANSPORT, HAS [facility] IN [place], AND FEEL SAFE TO RETURN HOME ONCE READY FOR DISCHARGE. Addendum: 04/24/20 at 1737 by JULIO CASTRO RN CM Amended: Links added.
--- NOTE | 2020-04-24 14:00 | NUR ---
NUTRITION COMPARISON SHOPPER-ASSISTED NUTRITION EDUCATION. Renal dialysis nutrition education faxed to 3D, Attempt to notify RN, no answer at unit or cover x2. ASHKAN to continue to monitor. Addendum: 04/24/20 at [address] Amended: Links added.
[2020-04-24 16:00] VITALS: BP 120/50
--- NOTE | 2020-04-24 16:58 | NUR ---
CM NOTE/[facility] CALL MADE BY CHARGE NURSE, CLAUDINE PEREZ. PER RN, PATIENT BEING DISCHARGE HOME AND REQUIRING EMS TRANSFER HOME. [facility] ORDER FOR SERVICE FAXED TO [facility], CONFIRMED RECEIVED BY FAX RECEIPT. CEDRIC PEREZ, PRIMARY NURSE, MADE AWARE OF EMS SET UP FOR HOME TRANSFER.
[2020-04-24 20:08] VITALS: BP 150/61
[2020-04-24] MEDS ORDERED: ZOLPIDEM TARTRATE 5 MG TAB PO SCH (21:00)
[2020-05-01 10:13] LABS: HEPATITIS A ANTIBODY IGM Negative (Negative); HEPATITIS B CORE IGM Negative (Negative)
== END 2020-04-24 21:30 | disposition home or self-care (01) | DRG 640 ==
LOC: EDH 15:32 → EDHIP 16:40 → 3DH 22:11
PROVIDERS: ADMIT Internal Medicine; ATTEND Internal Medicine
PROC: 5A1D70Z Performance of Urinary Filtration, Intermittent, Less than 6 Hours Per Day (ICD-10-PCS; principal; 2020-04-22)
PROC: 5A1D70Z Performance of Urinary Filtration, Intermittent, Less than 6 Hours Per Day (ICD-10-PCS; 2020-04-24)
DX: E87.5 Hyperkalemia (principal); N18.6 End stage renal disease; I12.0 Hypertensive chronic kidney disease with stage 5 chronic kidney disease or end stage renal disease; E87.2 Acidosis; E11.649 Type 2 diabetes mellitus with hypoglycemia without coma; E87.70 Fluid overload, unspecified; D64.9 Anemia, unspecified; D69.6 Thrombocytopenia, unspecified; E11.22 Type 2 diabetes mellitus with diabetic chronic kidney disease; E11.43 Type 2 diabetes mellitus with diabetic autonomic (poly)neuropathy; E11.51 Type 2 diabetes mellitus with diabetic peripheral angiopathy without gangrene; E78.5 Hyperlipidemia, unspecified; Z20.828 Contact with and (suspected) exposure to other viral communicable diseases; I45.9 Conduction disorder, unspecified; K31.84 Gastroparesis; Z74.01 Bed confinement status; Z86.73 Personal history of transient ischemic attack (TIA), and cerebral infarction without residual deficits; Z89.511 Acquired absence of right leg below knee; Z89.612 Acquired absence of left leg above knee; Z91.19 Patient's noncompliance with other medical treatment and regimen; Z99.2 Dependence on renal dialysis; Z88.0 Allergy status to penicillin; Z88.2 Allergy status to sulfonamides; Z88.8 Allergy status to other drugs, medicaments and biological substances
CPT/HCPCS: 36415; 71045; 80048; 80053; 80074; 82948; 83690; 84100; 84132; 84484; 85025; 85027; 87426; 90935; 93005; 99291; G0378; J0610; J1644; J2405; J7070; U0003

== ENCOUNTER 2020-06-17 13:34 | Emergency (ER) | payer MEDICARE ==
[~2020-06-17 13:34] MED LIST changes: -ALPR0.25 PO; -AMLO10TA7 PO; -INSU100I24 SQ; -INSU100I3 SQ; -IPRA3AMP24 IH; -LISI40TA4 PO; +ONDA8TAB12 PO; -PREG150C PO; -SODPOLY15G PO
[2020-06-17 14:19] LABS: BASOPHILS % (AUTO) 0.3 % (0.0-5.0); EOSINOPHILS % (AUTO) 4.2 % (0.0-8.0); HEMATOCRIT 35.2 % (36-48); LYMPHOCYTES % (AUTO) 15.3 % (21.0-51.0); MEAN CORPUSCULAR HEMOGLOBIN 32.7 pg (27.0-33.0); MEAN CORPUSCULAR HGB CONC 32.4 g/dL (32.0-36.0); MEAN CORPUSCULAR VOLUME 100.9 fL (79-99); MONOCYTES % (AUTO) 5.4 % (3.0-13.0); NEUTROPHILS % (AUTO) 74.4 % (40.0-77.0); PLATELET COUNT (AUTO) 84 K/uL (130-400); RED BLOOD CELL COUNT(AUTO) 3.49 MIL/uL (4.00-5.50); WHITE BLOOD COUNT (AUTO) 7.5 K/uL (4.8-10.8)
[2020-06-17] MEDS ORDERED: HYDRALAZINE HCL 20 MG/ML VIAL ONE (14:34)
[2020-06-17 14:35] LABS: INR 1.07 (0.85-1.15); PROTHROMBIN TIME 11.5 SEC (9.6-11.6)
[2020-06-17 14:36] LABS: ALBUMIN 2.2 g/dL (3.5-5.0); BILIRUBIN,TOTAL 0.6 mg/dL (0.2-1.0); TOTAL PROTEIN, SERUM 7.7 g/dL (6.0-8.3)
== END 2020-06-17 15:47 | disposition home or self-care (01) ==
LOC: EDH 13:34
DX: I13.11 Hypertensive heart and chronic kidney disease without heart failure, with stage 5 chronic kidney disease, or end stage renal disease (principal); R11.10 Vomiting, unspecified; Z99.2 Dependence on renal dialysis; E11.22 Type 2 diabetes mellitus with diabetic chronic kidney disease; N18.6 End stage renal disease; E78.5 Hyperlipidemia, unspecified; Z98.890 Other specified postprocedural states; Z88.0 Allergy status to penicillin; Z88.6 Allergy status to analgesic agent; Z88.2 Allergy status to sulfonamides; Z88.1 Allergy status to other antibiotic agents
CPT/HCPCS: 36415; 71045; 80053; 82550; 82948; 83690; 84484; 85025; 85610; 85730; 93005; 96374; 99285; J0360

== ENCOUNTER 2020-07-23 09:31 | Inpatient (IN) | payer MEDICARE ==
[~2020-07-23] VITALS: Ht 142.2 cm; Wt 122.5 kg
[2020-07-23] MEDS ORDERED: DEXTROSE 50%-WATER 50 ML DISP.SYRIN IV ONE (09:38)
[2020-07-23 10:17] LABS: BASOPHILS % (AUTO) 0.3 % (0.0-5.0); EOSINOPHILS % (AUTO) 0.1 % (0.0-8.0); HEMATOCRIT 28.7 % (36-48); MEAN CORPUSCULAR HEMOGLOBIN 31.4 pg (27.0-33.0); MEAN CORPUSCULAR VOLUME 101.4 fL (79-99); MONOCYTES % (AUTO) 5.1 % (3.0-13.0); NEUTROPHILS % (AUTO) 86.7 % (40.0-77.0); PLATELET COUNT (AUTO) 59 K/uL (130-400); RED BLOOD CELL COUNT(AUTO) 2.83 MIL/uL (4.00-5.50); RED CELL DISTRIBUTION WIDTH 16.6 % (11.0-15.5); WHITE BLOOD COUNT (AUTO) 15.4 K/uL (4.8-10.8)
[2020-07-23 10:26] LABS: CREATININE 7.4 mg/dL (0.5-1.5); POTASSIUM 4.7 mmol/L (3.5-5.1)
[2020-07-23 10:30] LABS: INR 1.21 (0.85-1.15)
[2020-07-23 10:36] LABS: ALBUMIN 1.4 g/dL (3.5-5.0); BILIRUBIN,TOTAL 1.3 mg/dL (0.2-1.0); TOTAL PROTEIN, SERUM 6.5 g/dL (6.0-8.3); TROPONIN I 0.21 ng/mL (0.00-0.06)
[2020-07-23 10:48] LABS: PLATELET MORPHOLOGY COMMENT DECREASED
[2020-07-23] MEDS ORDERED: VANCOMYCIN 1GM+NS 250ML 250 ML IV ONE ×2 (12:13→12:16)
[2020-07-23] MEDS ORDERED: GENTAMICIN PROTOCOL PER PHARMACY IV SCH (13:00)
[2020-07-23] MEDS ORDERED: ACETAMINOPHEN 650 MG SUPPOSITORY RC PRN (14:15)
[2020-07-23] MEDS ORDERED: GENTAMICIN 80 MG/NS 100 ML PB 100 ML IV SCH (14:30)
[2020-07-23] MEDS ORDERED: CLONIDINE HCL 0.1 MG TABLET PO PRN (14:30)
[2020-07-23] MEDS ORDERED: COMPOUND IV MISC 1 EACH IVSOLN MISC PRN (14:30)
[2020-07-23 17:25] LABS: TROPONIN I 0.44 ng/mL (0.00-0.06)
[2020-07-23] MEDS: ACETAMINOPHEN 325 MG TAB PO PRN (19:42)
[2020-07-23 21:06] VITALS: BP 139/87
[2020-07-24] VITALS (14 sets, daily range): BP systolic 94–134; BP diastolic 44–89
[2020-07-24] MEDS: ACETAMINOPHEN 325 MG TAB PO PRN ×3 (02:57→19:18)
[2020-07-24 03:59] LABS: HEMATOCRIT 29.8 % (36-48); MEAN CORPUSCULAR HEMOGLOBIN 30.7 pg (27.0-33.0); MEAN CORPUSCULAR HGB CONC 30.5 g/dL (32.0-36.0); MEAN CORPUSCULAR VOLUME 100.7 fL (79-99); PLATELET COUNT (AUTO) 70 K/uL (130-400); RED BLOOD CELL COUNT(AUTO) 2.96 MIL/uL (4.00-5.50); RED CELL DISTRIBUTION WIDTH 16.5 % (11.0-15.5)
[2020-07-24 04:07] LABS: PHOSPHORUS 5.8 mg/dL (2.5-4.9); POTASSIUM 4.8 mmol/L (3.5-5.1)
[2020-07-24 04:15] LABS: CREATININE 8.3 mg/dL (0.5-1.5)
[2020-07-24 04:22] LABS: EOSINOPHILS % (MANUAL) 1 % (1-6); LYMPHOCYTES % (MANUAL) 3 % (22-44); MAN.DIFF COMMENT-IMPRESSION MANUAL DIFFERENTIAL; MONOCYTES % (MANUAL) 8 % (2-9); SEGMENTED NEUTROPHILS % 88 % (40-70)
[2020-07-24] MEDS: ENOXAPARIN SODIUM 30 MG/0.3 ML SQ SCH (09:00)
[2020-07-24] MEDS: PANTOPRAZOLE SODIUM 40 MG TABLET.DR PO SCH (10:05)
[2020-07-24] MEDS ORDERED: LIDOCAINE HCL 1% MDV 50ML VIAL ONE (14:13)
[2020-07-24] MEDS: ONDANSETRON HCL 4 MG/2 ML VIAL IVP PRN (19:22)
[2020-07-24] MEDS ORDERED: HYDROCODONE/ACETAMINOPHEN 5/325 MG TAB ONE (23:12)
[2020-07-25] VITALS (16 sets, daily range): BP systolic 98–159; BP diastolic 52–99
[2020-07-25 03:41] LABS: HEMATOCRIT 28.2 % (36-48); MEAN CORPUSCULAR HEMOGLOBIN 30.8 pg (27.0-33.0); MEAN CORPUSCULAR HGB CONC 30.5 g/dL (32.0-36.0); MEAN CORPUSCULAR VOLUME 101.1 fL (79-99); NUCLEATED RED BLOOD CELLS 0.1 % (0.0-0.19); RED BLOOD CELL COUNT(AUTO) 2.79 MIL/uL (4.00-5.50); RED CELL DISTRIBUTION WIDTH 16.3 % (11.0-15.5); WHITE BLOOD COUNT (AUTO) 20.8 K/uL (4.8-10.8)
[2020-07-25 03:58] LABS: CREATININE 5.7 mg/dL (0.5-1.5); POTASSIUM 4.7 mmol/L (3.5-5.1)
[2020-07-25] MEDS: HYDROCODONE/ACETAMINOPHEN 5/325 MG TAB PO PRN ×4 (05:45→19:56)
[2020-07-25] MEDS: PANTOPRAZOLE SODIUM 40 MG TABLET.DR PO SCH (08:06)
[2020-07-25] MEDS: ENOXAPARIN SODIUM 30 MG/0.3 ML SQ SCH (08:06)
[2020-07-25] MEDS ORDERED: VANCOMYCIN PROTOCOL PER PHARMACY IV SCH (09:30)
[2020-07-25] MEDS ORDERED: COMPOUND IV REFRIGERATED 1 EACH IVSOLN MISC PRN (13:00)
[2020-07-25] MEDS: MEROPENEM 1 GM VIAL IVP SCH (14:25)
[2020-07-25] MEDS ORDERED: SODIUM BICARB 50MEQ 50ML VIAL 50 ML ONE (16:32)
[2020-07-25] MEDS ORDERED: LIDOCAINE HCL 2% 20ML ONE (16:32)
[2020-07-25] MEDS: ONDANSETRON HCL 4 MG/2 ML VIAL IVP PRN (19:56)
[2020-07-26] VITALS (18 sets, daily range): BP systolic 98–143; BP diastolic 32–75
[2020-07-26 03:36] LABS: HEMATOCRIT 28.6 % (36-48); MEAN CORPUSCULAR HEMOGLOBIN 30.2 pg (27.0-33.0); MEAN CORPUSCULAR HGB CONC 30.1 g/dL (32.0-36.0); MEAN CORPUSCULAR VOLUME 100.4 fL (79-99); NUCLEATED RED BLOOD CELLS 0.4 % (0.0-0.19); RED BLOOD CELL COUNT(AUTO) 2.85 MIL/uL (4.00-5.50); RED CELL DISTRIBUTION WIDTH 16.4 % (11.0-15.5); WHITE BLOOD COUNT (AUTO) 20.6 K/uL (4.8-10.8)
[2020-07-26 03:48] LABS: CREATININE 6.9 mg/dL (0.5-1.5)
[2020-07-26] MEDS: ENOXAPARIN SODIUM 30 MG/0.3 ML SQ SCH (08:38)
[2020-07-26] MEDS: HYDROCODONE/ACETAMINOPHEN 5/325 MG TAB PO PRN ×2 (08:39→17:17)
[2020-07-26] MEDS: PANTOPRAZOLE SODIUM 40 MG TABLET.DR PO SCH (08:40)
[2020-07-26] MEDS ORDERED: HEPARIN SODIUM 5000UNIT/ML 1ML VIAL ONE (16:47)
[2020-07-26] MEDS ORDERED: VANCOMYCIN 1.75 GM in SODIUM CHLORIDE 0.9% 250 ML IV ONE (17:00)
[2020-07-26] MEDS: MEROPENEM 1 GM VIAL IVP SCH (17:16)
[2020-07-27] MEDS: HYDROCODONE/ACETAMINOPHEN 5/325 MG TAB PO PRN ×2 (03:21→15:42)
[2020-07-27 04:00] VITALS: BP 93/34
[2020-07-27 08:00] VITALS: BP 120/46
[2020-07-27] MEDS ORDERED: PNEUMOCOCCAL VACCINE POLYVALENT 0.5 ML/VIAL [PPV] IM SCH ×2 (08:30→09:00)
[2020-07-27] MEDS: PANTOPRAZOLE SODIUM 40 MG TABLET.DR PO SCH (08:39)
[2020-07-27] MEDS: ENOXAPARIN SODIUM 30 MG/0.3 ML SQ SCH (08:41)
[2020-07-27 11:00] VITALS: BP 145/52
[2020-07-27] MEDS: MEROPENEM 1 GM VIAL IVP SCH (14:30)
[2020-07-27 16:00] VITALS: BP 125/48
[2020-07-27 19:20] VITALS: BP 123/42
[2020-07-28 00:16] VITALS: BP 153/40
[2020-07-28 04:10] VITALS: BP 122/44
[2020-07-28 05:59] LABS: HEMATOCRIT 29.9 % (36-48); MEAN CORPUSCULAR HEMOGLOBIN 30.6 pg (27.0-33.0); MEAN CORPUSCULAR HGB CONC 29.8 g/dL (32.0-36.0); MEAN CORPUSCULAR VOLUME 102.7 fL (79-99); NUCLEATED RED BLOOD CELLS 0.3 % (0.0-0.19); PLATELET COUNT (AUTO) 95 K/uL (130-400); RED BLOOD CELL COUNT(AUTO) 2.91 MIL/uL (4.00-5.50); RED CELL DISTRIBUTION WIDTH 16.9 % (11.0-15.5); WHITE BLOOD COUNT (AUTO) 26.2 K/uL (4.8-10.8)
[2020-07-28 08:13] VITALS: BP 108/39
[2020-07-28 08:16] LABS: BAND NEUTROPHILS % (MANUAL) 1 % (0-2); EOSINOPHILS % (MANUAL) 2 % (1-6); LYMPHOCYTES % (MANUAL) 10 % (22-44); MAN.DIFF COMMENT-IMPRESSION MANUAL DIFFERENTIAL; MONOCYTES % (MANUAL) 3 % (2-9); PLATELET MORPHOLOGY COMMENT DECREASED; SEGMENTED NEUTROPHILS % 84 % (40-70)
[2020-07-28 11:45] VITALS: BP 114/42
[2020-07-28] MEDS: MEROPENEM 1 GM VIAL IVP SCH (13:16)
[2020-07-28] MEDS: VANCOMYCIN 1GM+NS 250ML 250 ML IV SCH (13:16)
[2020-07-28] MEDS ORDERED: VANCOMYCIN 1.25 GM in SODIUM CHLORIDE 0.9% 250 ML IV ONE (14:00)
[2020-07-28] MEDS ORDERED: HEPARIN SODIUM 5000UNIT/ML 1ML VIAL ONE (14:03)
[2020-07-28 16:17] VITALS: BP 101/39
[2020-07-28] MEDS ORDERED: IOHEXOL-350 75 ML VIAL IV ONE (16:50)
[2020-07-28 20:39] VITALS: BP 136/78
[2020-07-28] MEDS: HYDROCODONE/ACETAMINOPHEN 5/325 MG TAB PO PRN (20:50)
[2020-07-28] MEDS ORDERED: MIDODRINE HCL 5 MG TABLET PO SCH (21:15)
[2020-07-29 00:33] VITALS: BP 137/40
[2020-07-29 04:57] VITALS: BP 139/64
[2020-07-29] MEDS: PANTOPRAZOLE SODIUM 40 MG TABLET.DR PO SCH (07:39)
[2020-07-29 08:00] VITALS: BP 114/40
[2020-07-29 11:57] LABS: HEMATOCRIT 28.2 % (36-48); MEAN CORPUSCULAR HGB CONC 30.1 g/dL (32.0-36.0); MEAN CORPUSCULAR VOLUME 102.9 fL (79-99); NUCLEATED RED BLOOD CELLS 0.2 % (0.0-0.19); RED BLOOD CELL COUNT(AUTO) 2.74 MIL/uL (4.00-5.50); RED CELL DISTRIBUTION WIDTH 17.8 % (11.0-15.5); WHITE BLOOD COUNT (AUTO) 21.3 K/uL (4.8-10.8)
[2020-07-29 12:00] VITALS: BP 137/43
[2020-07-29 12:04] LABS: CREATININE 5.8 mg/dL (0.5-1.5); POTASSIUM 4.4 mmol/L (3.5-5.1)
[2020-07-29] MEDS: MEROPENEM 1 GM VIAL IVP SCH (14:47)
[2020-07-29] MEDS: BALSAM PERU/CASTOR OIL 60 GM TUBE TP PRN (14:47)
[2020-07-29 16:00] VITALS: BP 112/39
[2020-07-29 20:32] VITALS: BP 155/31
[2020-07-30] VITALS: BP 135/44
[2020-07-30 05:13] VITALS: BP 127/43
[2020-07-30] MEDS: PANTOPRAZOLE SODIUM 40 MG TABLET.DR PO SCH (06:18)
[2020-07-30] MEDS ORDERED: VANCOMYCIN 1.25 GM in SODIUM CHLORIDE 0.9% 250 ML IV SCH (09:00)
[2020-07-30 09:14] LABS: HEMATOCRIT 28.3 % (36-48); MEAN CORPUSCULAR HEMOGLOBIN 31.1 pg (27.0-33.0); MEAN CORPUSCULAR HGB CONC 30.7 g/dL (32.0-36.0); MEAN CORPUSCULAR VOLUME 101.1 fL (79-99); NUCLEATED RED BLOOD CELLS 0.2 % (0.0-0.19); RED BLOOD CELL COUNT(AUTO) 2.8 MIL/uL (4.00-5.50); RED CELL DISTRIBUTION WIDTH 18.3 % (11.0-15.5); WHITE BLOOD COUNT (AUTO) 19.6 K/uL (4.8-10.8)
[2020-07-30 09:17] VITALS: BP 121/39
[2020-07-30 09:36] LABS: CREATININE 6.7 mg/dL (0.5-1.5); MAGNESIUM 2.3 mg/dL (1.80-2.40); POTASSIUM 4.7 mmol/L (3.5-5.1)
[2020-07-30] MEDS: BALSAM PERU/CASTOR OIL 60 GM TUBE TP PRN (11:25)
[2020-07-30 13:13] VITALS: BP 127/49
[2020-07-30] MEDS: MEROPENEM 1 GM VIAL IVP SCH (15:16)
[2020-07-30] MEDS: VANCOMYCIN 1GM+NS 250ML 250 ML IV SCH (15:36)
[2020-07-30] MEDS: HYDROCODONE/ACETAMINOPHEN 5/325 MG TAB PO PRN ×2 (16:01→22:32)
[2020-07-30 16:37] VITALS: BP 135/50
[2020-07-30] MEDS ORDERED: PERMETHRIN LOTION 1% 59ML BOTTLE TP SCH (19:30)
[2020-07-30 20:46] VITALS: BP 144/41
[2020-07-31] VITALS (7 sets, daily range): BP systolic 95–150; BP diastolic 41–94
[2020-07-31] MEDS: PANTOPRAZOLE SODIUM 40 MG TABLET.DR PO SCH (06:46)
[2020-07-31 07:14] LABS: HEPATITIS A ANTIBODY IGM Negative (Negative); HEPATITIS B CORE IGM Negative (Negative); HEPATITIS Bs ANTIGEN SCREEN P Negative (Negative)
[2020-07-31 11:24] LABS: INR 1.28 (0.85-1.15); PROTHROMBIN TIME 13.7 SEC (9.6-11.6)
[2020-07-31] MEDS: MEROPENEM 1 GM VIAL IVP SCH (17:06)
[2020-07-31] MEDS: HYDROCODONE/ACETAMINOPHEN 5/325 MG TAB PO PRN (21:23)
[2020-08-01] VITALS (24 sets, daily range): BP systolic 119–165; BP diastolic 29–95
[2020-08-01 05:11] LABS: HEMATOCRIT 24.9 % (36-48); MEAN CORPUSCULAR HEMOGLOBIN 30.8 pg (27.0-33.0); MEAN CORPUSCULAR HGB CONC 31.3 g/dL (32.0-36.0); MEAN CORPUSCULAR VOLUME 98.4 fL (79-99); RED BLOOD CELL COUNT(AUTO) 2.53 MIL/uL (4.00-5.50); RED CELL DISTRIBUTION WIDTH 18.3 % (11.0-15.5); WHITE BLOOD COUNT (AUTO) 14.6 K/uL (4.8-10.8)
[2020-08-01 05:37] LABS: INR 1.17 (0.85-1.15); PARTIAL THROMBOPLASTIN TIME 30.9 SEC (26.3-35.5); PROTHROMBIN TIME 12.6 SEC (9.6-11.6)
[2020-08-01 05:39] LABS: POTASSIUM 4.1 mmol/L (3.5-5.1)
[2020-08-01] MEDS: PANTOPRAZOLE SODIUM 40 MG TABLET.DR PO SCH (07:30)
[2020-08-01] MEDS: VANCOMYCIN 1GM+NS 250ML 250 ML IV SCH (10:08)
[2020-08-01] MEDS ORDERED: KETAMINE 50MG/ML SYRINGE 50 MG/ML DISP.SYRIN IV ONE (11:21)
[2020-08-01] MEDS ORDERED: ROPIVACAINE 0.5% 5MG/ML 30ML IJ ONE (11:21)
[2020-08-01] MEDS ORDERED: PROPOFOL 1000 MG/100 ML 100 ML IV ONE (11:21)
[2020-08-01] MEDS ORDERED: ROCURONIUM 10MG/1ML SYR 10 MG/ML ML ONE (11:30)
[2020-08-01] MEDS ORDERED: PROPOFOL 10 MG/ML 20ML VIAL IV ONE (11:30)
[2020-08-01] MEDS ORDERED: FENTANYL CITRATE PF 50 MCG/1 ML 2ML VIAL ONE (11:32)
[2020-08-01] MEDS ORDERED: MIDAZOLAM HCL 1 MG/ML 2ML VIAL ONE (11:32)
[2020-08-01] MEDS ORDERED: VANCOMYCIN HCL 1 GM VIAL ONE (11:38)
[2020-08-01] MEDS ORDERED: EPHEDRINE SULFATE 50 MG/ML AMPULE ONE (11:51)
[2020-08-01] MEDS ORDERED: LIDOCAINE HCL 1% MDV 50ML VIAL ONE (15:39)
[2020-08-01] MEDS: MEROPENEM 1 GM VIAL IVP SCH (16:50)
[2020-08-01] MEDS: BALSAM PERU/CASTOR OIL 60 GM TUBE TP PRN (20:48)
[2020-08-02] VITALS (7 sets, daily range): BP systolic 106–150; BP diastolic 25–58
[2020-08-02 05:02] LABS: HEMATOCRIT 25.2 % (36-48); MEAN CORPUSCULAR HEMOGLOBIN 30.7 pg (27.0-33.0); MEAN CORPUSCULAR HGB CONC 31.3 g/dL (32.0-36.0); MEAN CORPUSCULAR VOLUME 98.1 fL (79-99); RED BLOOD CELL COUNT(AUTO) 2.57 MIL/uL (4.00-5.50); RED CELL DISTRIBUTION WIDTH 18.7 % (11.0-15.5); WHITE BLOOD COUNT (AUTO) 15.8 K/uL (4.8-10.8)
[2020-08-02 05:18] LABS: CREATININE 6.8 mg/dL (0.5-1.5); POTASSIUM 4.6 mmol/L (3.5-5.1); VANCOMYCIN LEVEL 21.8 mcg/mL (18.0-26.0)
[2020-08-02] MEDS: PANTOPRAZOLE SODIUM 40 MG TABLET.DR PO SCH (07:56)
[2020-08-02] MEDS: HYDROCODONE/ACETAMINOPHEN 5/325 MG TAB PO PRN ×2 (07:59→12:44)
[2020-08-02] MEDS ORDERED: HEPARIN SODIUM 5000UNIT/ML 1ML VIAL ONE (11:42)
[2020-08-02] MEDS: MEROPENEM 1 GM VIAL IVP SCH (12:44)
[2020-08-03] MEDS: HYDROCODONE/ACETAMINOPHEN 5/325 MG TAB PO PRN ×2 (01:19→12:09)
[2020-08-03 03:12] VITALS: BP 100/32
[2020-08-03 05:09] LABS: BASOPHILS % (AUTO) 0.4 % (0.0-5.0); EOSINOPHILS % (AUTO) 1.2 % (0.0-8.0); HEMATOCRIT 23.5 % (36-48); LYMPHOCYTES % (AUTO) 14.5 % (21.0-51.0); MEAN CORPUSCULAR HEMOGLOBIN 30.8 pg (27.0-33.0); MEAN CORPUSCULAR HGB CONC 30.6 g/dL (32.0-36.0); MEAN CORPUSCULAR VOLUME 100.4 fL (79-99); MONOCYTES % (AUTO) 5.3 % (3.0-13.0); NEUTROPHILS % (AUTO) 77.7 % (40.0-77.0); PLATELET COUNT (AUTO) 88 K/uL (130-400); RED BLOOD CELL COUNT(AUTO) 2.34 MIL/uL (4.00-5.50); RED CELL DISTRIBUTION WIDTH 18.7 % (11.0-15.5); WHITE BLOOD COUNT (AUTO) 12.9 K/uL (4.8-10.8)
[2020-08-03 05:14] LABS: CREATININE 4.4 mg/dL (0.5-1.5); POTASSIUM 3.8 mmol/L (3.5-5.1)
[2020-08-03] MEDS: PANTOPRAZOLE SODIUM 40 MG TABLET.DR PO SCH (06:35)
[2020-08-03 07:40] VITALS: BP 95/60
[2020-08-03 12:24] VITALS: BP 104/44
[2020-08-03] MEDS: MEROPENEM 1 GM VIAL IVP SCH (15:31)
[2020-08-03 18:35] VITALS: BP 113/43
[2020-08-03 20:46] VITALS: BP 181/28
[2020-08-03 21:02] VITALS: BP 149/48
[2020-08-04] VITALS: BP 132/44
[2020-08-04 04:00] VITALS: BP 115/45
[2020-08-04 04:52] LABS: BASOPHILS % (AUTO) 0.4 % (0.0-5.0); EOSINOPHILS % (AUTO) 1.4 % (0.0-8.0); HEMATOCRIT 24.2 % (36-48); LYMPHOCYTES % (AUTO) 14.3 % (21.0-51.0); MEAN CORPUSCULAR HEMOGLOBIN 30.9 pg (27.0-33.0); MEAN CORPUSCULAR HGB CONC 31.4 g/dL (32.0-36.0); MEAN CORPUSCULAR VOLUME 98.4 fL (79-99); MONOCYTES % (AUTO) 4.3 % (3.0-13.0); NEUTROPHILS % (AUTO) 78.8 % (40.0-77.0); PLATELET COUNT (AUTO) 86 K/uL (130-400); RED BLOOD CELL COUNT(AUTO) 2.46 MIL/uL (4.00-5.50); RED CELL DISTRIBUTION WIDTH 18.6 % (11.0-15.5); WHITE BLOOD COUNT (AUTO) 13.9 K/uL (4.8-10.8)
[2020-08-04 05:32] LABS: ALBUMIN 1.2 g/dL (3.5-5.0); BILIRUBIN,TOTAL 1.2 mg/dL (0.2-1.0); CREATININE 5.4 mg/dL (0.5-1.5); PHOSPHORUS 6.9 mg/dL (2.5-4.9); POTASSIUM 4.1 mmol/L (3.5-5.1); TOTAL PROTEIN, SERUM 6.9 g/dL (6.0-8.3)
[2020-08-04] MEDS: PANTOPRAZOLE SODIUM 40 MG TABLET.DR PO SCH ×2 (06:00→08:01)
[2020-08-04] MEDS: HYDROCODONE/ACETAMINOPHEN 10/325 MG TAB PO PRN ×4 (06:58→18:38)
[2020-08-04 08:00] VITALS: BP 100/40
[2020-08-04] MEDS ORDERED: HYDROMORPHONE 1 MG/1 ML AMP IVP SCH (08:15)
[2020-08-04] MEDS ORDERED: HYDROMORPHONE 1 MG/1 ML AMP ONE (08:40)
[2020-08-04 16:00] VITALS: BP 106/21
[2020-08-04 20:40] VITALS: BP 111/33
[2020-08-05 00:01] VITALS: BP 132/32
[2020-08-05 04:03] VITALS: BP 111/35
[2020-08-05 04:33] LABS: HEMATOCRIT 23.5 % (36-48); MEAN CORPUSCULAR HEMOGLOBIN 30.4 pg (27.0-33.0); MEAN CORPUSCULAR HGB CONC 30.6 g/dL (32.0-36.0); MEAN CORPUSCULAR VOLUME 99.2 fL (79-99); PLATELET COUNT (AUTO) 93 K/uL (130-400); RED BLOOD CELL COUNT(AUTO) 2.37 MIL/uL (4.00-5.50); RED CELL DISTRIBUTION WIDTH 18.6 % (11.0-15.5); WHITE BLOOD COUNT (AUTO) 17.4 K/uL (4.8-10.8)
[2020-08-05 04:50] LABS: CREATININE 6.3 mg/dL (0.5-1.5); POTASSIUM 4.3 mmol/L (3.5-5.1)
[2020-08-05 06:10] LABS: BAND NEUTROPHILS % (MANUAL) 7 % (0-2); EOSINOPHILS % (MANUAL) 2 % (1-6); LYMPHOCYTES % (MANUAL) 13 % (22-44); MAN.DIFF COMMENT-IMPRESSION MANUAL DIFFERENTIAL; MONOCYTES % (MANUAL) 4 % (2-9); SEGMENTED NEUTROPHILS % 74 % (40-70)
[2020-08-05 06:11] LABS: PLATELET MORPHOLOGY COMMENT MARKED DECREASE
[2020-08-05] MEDS: PANTOPRAZOLE SODIUM 40 MG TABLET.DR PO SCH ×2 (10:45→10:47)
[2020-08-05] MEDS: ASPIRIN 81MG TAB.CHEW PO SCH (12:53)
[2020-08-05 13:22] VITALS: BP 106/43
[2020-08-05] MEDS ORDERED: SODIUM CHLORIDE 0.9% 250 ML IV ONE (14:28)
[2020-08-05] MEDS: HYDROCODONE/ACETAMINOPHEN 10/325 MG TAB PO PRN (14:41)
[2020-08-05 15:56] VITALS: BP 88/47
[2020-08-05] MEDS ORDERED: TRAZODONE HCL 50 MG TAB PO PRN (19:15)
[2020-08-05] MEDS ORDERED: ALPRAZOLAM 1 MG TAB PO SCH (19:15)
[2020-08-05 20:00] VITALS: BP 76/43
[2020-08-05] MEDS: ALPRAZOLAM 1 MG TAB PO SCH (21:00)
[2020-08-05] MEDS ORDERED: MIDODRINE HCL 5 MG TABLET PO PRN ×2 (21:00→22:45)
[2020-08-05] MEDS: ATORVASTATIN CALCIUM 20 MG TABLET PO SCH (21:17)
[2020-08-05 23:45] VITALS: BP 118/66
[2020-08-06] VITALS (19 sets, daily range): BP systolic 49–138; BP diastolic 27–83
[2020-08-06] MEDS: PANTOPRAZOLE SODIUM 40 MG TABLET.DR PO SCH (05:56)
[2020-08-06] MEDS ORDERED: DEXTROSE 50%-WATER 50 ML DISP.SYRIN IV ONE (06:20)
[2020-08-06 07:01] LABS: CREATININE 4.9 mg/dL (0.5-1.5); POTASSIUM 4.1 mmol/L (3.5-5.1)
[2020-08-06 07:06] LABS: HEMATOCRIT 23.8 % (36-48); MEAN CORPUSCULAR HEMOGLOBIN 30.8 pg (27.0-33.0); MEAN CORPUSCULAR HGB CONC 31.9 g/dL (32.0-36.0); MEAN CORPUSCULAR VOLUME 96.4 fL (79-99); RED BLOOD CELL COUNT(AUTO) 2.47 MIL/uL (4.00-5.50); RED CELL DISTRIBUTION WIDTH 19.7 % (11.0-15.5); WHITE BLOOD COUNT (AUTO) 17.7 K/uL (4.8-10.8)
[2020-08-06] MEDS ORDERED: SODIUM CHLORIDE 0.9% 1000ML 1,000 ML IV ONE (08:21)
[2020-08-06] MEDS ORDERED: DEXTROSE 50%-WATER 50 ML DISP.SYRIN IV SCH (08:26)
[2020-08-06] MEDS ORDERED: CEFAZOLIN SODIUM 1 GM VIAL IVP SCH (09:00)
[2020-08-06] MEDS ORDERED: MIDODRINE HCL 5 MG TABLET PO SCH (09:00)
[2020-08-06] MEDS ORDERED: BUPIVACAINE/PF 0.5% 30ML VIAL ONE (09:28)
[2020-08-06] MEDS ORDERED: CLINDAMYCIN PHOSPHATE 150 MG/ML 6ML VIAL ONE (09:28)
[2020-08-06] MEDS ORDERED: ONDANSETRON HCL 4 MG/2 ML VIAL ONE (09:46)
[2020-08-06] MEDS ORDERED: LIDOCAINE PF 2% 5ML ABBOJECT ONE ×2 (09:46→10:31)
[2020-08-06] MEDS ORDERED: MIDAZOLAM HCL 1 MG/ML 2ML VIAL ONE (09:46)
[2020-08-06] MEDS ORDERED: FENTANYL CITRATE PF 50 MCG/1 ML 2ML VIAL ONE (09:47)
[2020-08-06] MEDS ORDERED: KETAMINE 50MG/ML SYRINGE 50 MG/ML DISP.SYRIN IV ONE ×2 (09:53→09:54)
[2020-08-06] MEDS ORDERED: ALBUMIN (HUMAN) 5% 250 ML IV ONE (09:54)
[2020-08-06] MEDS ORDERED: ALBUMIN (HUMAN) 25% 50 ML IV ONE (09:55)
[2020-08-06] MEDS ORDERED: LIDOCAINE HCL 1% 20 ML VIAL ONE (10:05)
[2020-08-06] MEDS ORDERED: SODIUM BICARB 8.4% 50ML SYRINGE ONE (10:10)
[2020-08-06] MEDS ORDERED: BACITRACIN 28.4 GM OINT TP ONE (10:21)
[2020-08-06] MEDS: ALPRAZOLAM 1 MG TAB PO SCH ×3 (14:00→21:18)
[2020-08-06] MEDS: HYDROCODONE/ACETAMINOPHEN 10/325 MG TAB PO PRN (14:30)
[2020-08-06] MEDS: MIDODRINE HCL 5 MG TABLET PO SCH ×2 (14:32→21:17)
[2020-08-06] MEDS: ASPIRIN 81MG TAB.CHEW PO SCH (14:32)
[2020-08-06] MEDS: PAROXETINE HCL 20 MG TABLET PO SCH (14:33)
[2020-08-06] MEDS: HYDROCODONE/ACETAMINOPHEN 5/325 MG TAB PO PRN (19:00)
[2020-08-06] MEDS: ATORVASTATIN CALCIUM 20 MG TABLET PO SCH (21:18)
[2020-08-07 00:06] VITALS: BP 81/54
[2020-08-07 03:46] VITALS: BP 83/60
[2020-08-07] MEDS: HYDROCODONE/ACETAMINOPHEN 10/325 MG TAB PO PRN (06:30)
[2020-08-07] MEDS: PANTOPRAZOLE SODIUM 40 MG TABLET.DR PO SCH ×2 (07:49→13:28)
[2020-08-07] MEDS ORDERED: MORPHINE SULFATE 2 MG/ML 1ML SYG ONE (07:51)
[2020-08-07] MEDS ORDERED: MORPHINE SULFATE 4 MG/1ML SYG IV PRN (08:15)
[2020-08-07 09:00] VITALS: BP 61/44
[2020-08-07 11:00] VITALS: BP 91/27
[2020-08-07] MEDS: ASPIRIN 81MG TAB.CHEW PO SCH (13:26)
[2020-08-07] MEDS: MIDODRINE HCL 5 MG TABLET PO SCH ×2 (13:27→14:00)
[2020-08-07] MEDS: PAROXETINE HCL 20 MG TABLET PO SCH (13:27)
[2020-08-07] MEDS: ALPRAZOLAM 1 MG TAB PO SCH ×2 (13:28→14:00)
[2020-08-07 16:41] VITALS: BP 138/71
[2020-08-07] MEDS ORDERED: MORPHINE SULFATE 20MG/ML ORAL 0.25 ML PO PRN (17:30)
[2020-08-07] MEDS ORDERED: MORPHINE SULFATE 2 MG/ML 1ML SYG IM PRN (17:45)
[2020-08-08] MEDS ORDERED: CEFAZOLIN SODIUM 1 GM VIAL IVP SCH (09:00)
== END 2020-08-08 00:02 | disposition expired | DRG 252 ==
LOC: EDH 09:31 → EDHIP 11:55 → 2DH 18:15 → 3AH 07-26 17:08 → 3DH 07-28 17:41
PROVIDERS: ADMIT Internal Medicine; ATTEND Internal Medicine
PROC: 5A1D70Z Performance of Urinary Filtration, Intermittent, Less than 6 Hours Per Day (ICD-10-PCS; 2020-07-24)
PROC: 02PAX3Z Removal of Infusion Device from Heart, External Approach (ICD-10-PCS; 2020-07-24)
PROC: 05HY33Z Insertion of Infusion Device into Upper Vein, Percutaneous Approach (ICD-10-PCS; 2020-07-25)
PROC: B543ZZA Ultrasonography of Right Jugular Veins, Guidance (ICD-10-PCS; 2020-07-25)
PROC: 5A1D70Z Performance of Urinary Filtration, Intermittent, Less than 6 Hours Per Day (ICD-10-PCS; 2020-07-26)
PROC: 3E02340 Introduction of Influenza Vaccine into Muscle, Percutaneous Approach (ICD-10-PCS; 2020-07-27)
PROC: 5A1D70Z Performance of Urinary Filtration, Intermittent, Less than 6 Hours Per Day (ICD-10-PCS; 2020-07-28)
PROC: 5A1D70Z Performance of Urinary Filtration, Intermittent, Less than 6 Hours Per Day (ICD-10-PCS; 2020-07-30)
PROC: 05PYX3Z Removal of Infusion Device from Upper Vein, External Approach (ICD-10-PCS; 2020-07-31)
PROC: 05HY33Z Insertion of Infusion Device into Upper Vein, Percutaneous Approach (ICD-10-PCS; 2020-08-01)
PROC: B5141ZA Fluoroscopy of Left Jugular Veins using Low Osmolar Contrast, Guidance (ICD-10-PCS; 2020-08-01)
PROC: 05PY0JZ Removal of Synthetic Substitute from Upper Vein, Open Approach (ICD-10-PCS; principal; 2020-08-01 11:18)
PROC: 03PY0JZ Removal of Synthetic Substitute from Upper Artery, Open Approach (ICD-10-PCS; 2020-08-01 11:18)
PROC: 5A1D70Z Performance of Urinary Filtration, Intermittent, Less than 6 Hours Per Day (ICD-10-PCS; 2020-08-02)
PROC: 30233N1 Transfusion of Nonautologous Red Blood Cells into Peripheral Vein, Percutaneous Approach (ICD-10-PCS; 2020-08-05)
PROC: 5A1D70Z Performance of Urinary Filtration, Intermittent, Less than 6 Hours Per Day (ICD-10-PCS; 2020-08-05)
PROC: 0X6N0Z2 Detachment at Right Index Finger, Mid, Open Approach (ICD-10-PCS; 2020-08-06)
DX: T82.7XXA Infection and inflammatory reaction due to other cardiac and vascular devices, implants and grafts, initial encounter (principal); A41.02 Sepsis due to Methicillin resistant Staphylococcus aureus; N18.6 End stage renal disease; J96.00 Acute respiratory failure, unspecified whether with hypoxia or hypercapnia; J15.6 Pneumonia due to other Gram-negative bacteria; R65.21 Severe sepsis with septic shock; E66.2 Morbid (severe) obesity with alveolar hypoventilation; L03.114 Cellulitis of left upper limb; J44.0 Chronic obstructive pulmonary disease with (acute) lower respiratory infection; I12.0 Hypertensive chronic kidney disease with stage 5 chronic kidney disease or end stage renal disease; L03.311 Cellulitis of abdominal wall; E11.52 Type 2 diabetes mellitus with diabetic peripheral angiopathy with gangrene; I96 Gangrene, not elsewhere classified; L02.414 Cutaneous abscess of left upper limb; Z68.44 Body mass index [BMI] 60.0-69.9, adult; T85.79XA Infection and inflammatory reaction due to other internal prosthetic devices, implants and grafts, initial encounter; E11.22 Type 2 diabetes mellitus with diabetic chronic kidney disease; Z99.2 Dependence on renal dialysis; K90.0 Celiac disease; L98.499 Non-pressure chronic ulcer of skin of other sites with unspecified severity; D63.8 Anemia in other chronic diseases classified elsewhere; L89.152 Pressure ulcer of sacral region, stage 2; D69.6 Thrombocytopenia, unspecified; E11.319 Type 2 diabetes mellitus with unspecified diabetic retinopathy without macular edema; E78.5 Hyperlipidemia, unspecified; F32.9 Major depressive disorder, single episode, unspecified; F41.0 Panic disorder [episodic paroxysmal anxiety]; I25.10 Atherosclerotic heart disease of native coronary artery without angina pectoris; K52.9 Noninfective gastroenteritis and colitis, unspecified; Z20.828 Contact with and (suspected) exposure to other viral communicable diseases; R53.81 Other malaise; Y83.8 Other surgical procedures as the cause of abnormal reaction of the patient, or of later complication, without mention of misadventure at the time of the procedure; Y84.8 Other medical procedures as the cause of abnormal reaction of the patient, or of later complication, without mention of misadventure at the time of the procedure; Y83.2 Surgical operation with anastomosis, bypass or graft as the cause of abnormal reaction of the patient, or of later complication, without mention of misadventure at the time of the procedure; L89.322 Pressure ulcer of left buttock, stage 2; L89.312 Pressure ulcer of right buttock, stage 2; Z74.01 Bed confinement status; Z82.49 Family history of ischemic heart disease and other diseases of the circulatory system; Z83.3 Family history of diabetes mellitus; Z87.441 Personal history of nephrotic syndrome; Z88.1 Allergy status to other antibiotic agents; Z89.511 Acquired absence of right leg below knee; Z89.612 Acquired absence of left leg above knee; Z91.15 Patient's noncompliance with renal dialysis; Z91.19 Patient's noncompliance with other medical treatment and regimen; Z88.0 Allergy status to penicillin; Z23 Encounter for immunization
CPT/HCPCS: 36415; 36556; 36589; 70450; 71045; 71250; 73201; 77001; 80048; 80053; 80074; 80202; 82550; 82948; 83605; 83735; 83874; 84100; 84145; 84484; 85025; 85027; 85610; 85730; 86850; 86900; 86901; 86923; 87040; 87070; 87076; 87077; 87186; 87205; 87426; 87804; 88300; 88305; 88311; 90732; 90935; 93005; 93306; 93356; 97039; 99291; A4606; C1752; C1769; G0009; G0378; J0690; J1170; J1580; J1644; J1650; J2001; J2185; J2250; J2405; J2704; J2795; J3010; J3370; J3490; J7030; J7050; J7070; P9016; P9045; P9047; Q9967; U0003